=== PATIENT | male | born 1945 | race Caucasian/White ===

== ENCOUNTER 2018-09-08 08:17 | Inpatient (IN) ==
[2018-09-08] MEDS ORDERED: IOPAMIDOL 100 ML BOTTLE IV ONE (08:18)
[2018-09-08] MEDS ORDERED: 0.9 % SODIUM CHLORIDE 1,000 ML IV ONE (08:28)
[2018-09-08] MEDS ORDERED: ACETAMINOPHEN 325 MG TABLET PO ONE (08:54)
[2018-09-08] MEDS ORDERED: ONDANSETRON 4 MG/2 ML VIAL IV ONE (08:56)
--- NOTE | 2018-09-08 08:58 | Emergency Department Note ---
General Adult HPI - General Chief complaint: Cold/Flu Symptoms Stated complaint: "Feverish and stuff" Time Seen by Provider: 09/08/18 08:53 Source: patient Mode of arrival: ambulatory Limitations: no limitations - History of Present Illness HPI Narrative: This patient has not felt well for the last several days and has had cough with some nausea vomiting and also has developed some dysuria and urgency. No diarrhea. No significant abdominal pain. - Related Data Home Medications Medication Instructions Recorded Confirmed ascorbic acid (vitamin C) 500 mg 500 mg PO QDAY 10/15/17 08/19/18 tablet calcium cit 250 mg-mag 40 mg-D3 1 tab PO QDAY 10/15/17 08/19/18 125 unit-zinc 3.75 mg-copyright expert-sarah tablet cholecalciferol (vitamin D3) 5,000 5,000 unit PO QDAY 10/15/17 08/19/18 unit capsule coenzyme Q10 (ubiquinol) 100 mg 100 mg PO QDAY cap 10/15/17 08/19/18 capsule potassium chloride ER 10 mEq 10 meq PO QDAY 10/15/17 08/19/18 tablet,extended release(part/cryst) pyridoxine (vitamin B6) 50 mg 50 mg PO QDAY 10/15/17 08/19/18 capsule vitamin E 200 unit capsule 400 unit PO QDAY 10/15/17 08/19/18 biotin 5 mg capsule 5 mg PO QDAY 11/06/17 08/19/18 carica papaya tablet 1 tab PO QDAY tab 11/06/17 08/19/18 magnesium oxide 400 mg capsule 400 mg PO QDAY cap 11/06/17 08/19/18 zinc 50 mg tablet 50 mg PO QDAY 11/06/17 08/19/18 furosemide 40 mg tablet 40 mg PO ONCE PRN tab 07/15/18 08/19/18 Previous Rx's Medication Instructions Recorded cyanocobalamin (vit B-12) 1,000 1,000 mcg PO QDAY #1 tab 11/06/17 mcg tablet Allergies Allergy/AdvReac Type Severity Reaction Status Date / Time pravastatin [PRAVASTATIN] AdvReac Intermediate LOOSE STOOL Verified 08/19/18 08:30 Review of Systems All systems ED: reviewed and negative except as stated. Past Medical History - Past Medical History PMFSH Narrative: Medical History (Last Reviewed 08/19/18 @ 08:31 by Helen Walker CMA) Acute exacerbation of chronic obstructive airways disease (Resolved) Osteopenia (Chronic) Shortness of Breath (Chronic) Xerosis of skin (Chronic 11/07/13) Tricuspid regurgitation (Chronic) Tachycardia (Chronic) Seborrheic keratosis (Chronic 11/07/13) Reactive airway disease (Chronic 12/22/11) Pulmonary hypertension, secondary (Chronic) Pneumonia (Resolved 12/22/11) Lung nodule (Chronic) Mitral valve regurgitation (Chronic) Essential hypertension (Chronic 12/22/11) Hyperlipidemia (Chronic 12/22/11) Hiatal hernia (Chronic 05/05/14) Heart disease (Chronic) GERD (gastroesophageal reflux disease) (Chronic 11/02/10) Food intolerance (Chronic 09/24/13) Esophageal stricture (Chronic 05/05/14) Eczema (Chronic 11/07/13) Dyspnea (Chronic 12/28/12) Diverticulosis of colon (Chronic) Diarrhea (Chronic 04/07/14) Cough (Chronic 10/04/11) COPD (chronic obstructive pulmonary disease) (Chronic) Cardiomyopathy, secondary (Chronic) Cardiomegaly (Chronic 07/20/12) Bronchitis, chronic with acute exacerbation (Chronic) Breast tenderness (Resolved 09/24/13) Basal cell carcinoma (Resolved) Arrhythmia (Chronic 01/22/14) Anemia (Chronic 11/02/10) Erectile dysfunction (Chronic) Congestive heart failure (Chronic) Peptic stricture of esophagus (Chronic) Reflux esophagitis (Chronic) Garber's esophagus (Chronic) Atrial fibrillation (Inactive) Hyperplastic rectal polyp (Inactive 01/06/10) 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) Past Surgical History (Last Reviewed 08/19/18 @ 08:31 by Helen Walker CMA) History of right inguinal hernia repair (Acute) History of colonoscopy (Chronic 05/06/14) History of esophagogastroduodenoscopy (Chronic 05/05/14) History of mitral valve repair (Inactive 05/15/13) History of tricuspid valve repair (Inactive 05/13/13) History of valvuloplasty (Inactive) Family History (Last Reviewed 08/19/18 @ 08:31 by Helen Walker CMA) Mother Asthma Father Cardiac disease Sister Cardiac disease Mitral valve disease Medical history: Reports: CHF, COPD Surgical history ED: Reports: non-contributory - Social History smoking status: Never smoker Physical Exam Limitations: no limitations General appearance: alert Head: atraumatic Eye: Present: normal appearance ENT: normal exam Neck: Present: normal inspection Chest: Present: normal inspection Respiratory: Present: rales/crackles Cardiovascular: Present: regular rate, normal rhythm, normal heart sounds Abdominal: Present: soft. Absent: distention, tenderness Neurological: Present: alert Psychiatric: Present: normal affect Skin: Present: warm, dry Course Vital Signs Temperature 100.6 F H 09/08/18 08:18 Pulse Rate 96 H 09/08/18 08:18 Respiratory Rate 18 09/08/18 08:18 Pulse Oximetry (%) 95 09/08/18 08:18 Temperature 100.8 F H 09/08/18 10:15 Pulse Rate 104 H 09/08/18 10:07 Respiratory Rate 26 H 09/08/18 10:07 Blood Pressure 141/57 09/08/18 10:01 Pulse Oximetry (%) 94 09/08/18 10:07 Medical Decision Making - MDM Narrative Medical decision making narrative: This patient appears to have urosepsis and had one episode of emesis that had quite a bit of blood in it. We started him on Protonix and he will be admitted to the hospital by Dr. Kinney. We did blood cultures and gave him Levaquin. His chest x-ray looks normal except for some interstitial edema. He will get a CT scan of chest abdomen and pelvis. - Lab Data Lab results reviewed: Yes I reviewed the patient's lab results. Result diagrams: 09/08/18 08:55 09/08/18 08:55 Lab Results 09/08/18 09/08/18 09/08/18 Range/Units 08:50 08:50 08:55 WBC 17.6 H (4.5-11.0) K/mcL RBC 5.35 (4.50-5.90) M/mcL Hgb 15.2 (13.5-16.5) g/dL Hct 47.9 (41.0-55.0) % MCV 89.5 (80.0-100.0) fL MCH 28.5 (26.0-34.0) pg MCHC 31.8 (31.0-36.0) g/dL RDW 12.8 (11.5-14.5) % Plt Count 273 (140-440) K/mcL MPV 9.0 (7.4-10.4) fL Gran % 92.8 H (38.0-78.0) % Lymph % (Auto) 1.6 L (15.5-49.0) % Steele % (Auto) 5.6 (1.0-12.0) % Eos % (Auto) 0 (0.0-7.0) % Baso % (Auto) 0 (0.0-2.0) % Gran # 16.3 H (1.8-8.0) K/mcL Lymph # (Auto) 0.3 L (1.5-4.8) K/mcL Steele # (Auto) 1.0 H (0.1-0.9) K/mcL Eos # (Auto) 0 (0.0-0.7) K/mcL Baso # (Auto) 0 (0.0-0.3) K/mcL PT 15.3 H (11.9-14.5) sec INR 1.2 H (0.9-1.1) APTT 40 H (20-37) sec VBG Lactic Acid 1.3 (0.5-2.0) mmol/L Sodium (133-145) mmol/L Potassium (3.3-5.1) mmol/L Chloride (96-108) mmol/L Carbon Dioxide (22-30) mmol/L Anion Gap (8-16) BUN (8-23) mg/dl Creatinine (0.7-1.2) mg/dl GFR Calculation Glucose (70-105) mg/dL Calcium (8.6-10.4) mg/dl Total Bilirubin (0.0-1.0) mg/dL AST (0-37) U/l ALT (0-40) U/l Alkaline Phosphatase (39-117) U/L Total Protein (5.9-8.4) gm/dL Albumin (3.2-5.2) gm/dL Globulin (2.2-3.7) gm/dL Albumin/Globulin Ratio (1.0-2.3) Urine Color Urine Appearance Urine pH (5.0-9.0) Ur Specific [place] (1.000-1.035) Urine Protein (NEG) mg/dL Urine Glucose (UA) (NEG) mg/dL Urine Ketones (NEG) mg/dL Urine Occult Blood (<0.03) mg/dL Urine Nitrate (NEG) Urine Bilirubin (NEG) mg/dL Urine Urobilinogen (NEG) mg/dL Ur Leukocyte Esterase (NEG) /uL Urine RBC (0-1) /hpf Urine WBC (0-4) /hpf Ur Squamous Epith Cells (0-4) /hpf Urine Bacteria (0) /hpf Urine Mucus (0) /hpf Ur Culture Indicated? 09/08/18 09/08/18 Range/Units 08:55 09:26 WBC (4.5-11.0) K/mcL RBC (4.50-5.90) M/mcL Hgb (13.5-16.5) g/dL Hct (41.0-55.0) % MCV (80.0-100.0) fL MCH (26.0-34.0) pg MCHC (31.0-36.0) g/dL RDW (11.5-14.5) % Plt Count (140-440) K/mcL MPV (7.4-10.4) fL Gran % (38.0-78.0) % Lymph % (Auto) (15.5-49.0) % Steele % (Auto) (1.0-12.0) % Eos % (Auto) (0.0-7.0) % Baso % (Auto) (0.0-2.0) % Gran # (1.8-8.0) K/mcL Lymph # (Auto) (1.5-4.8) K/mcL Steele # (Auto) (0.1-0.9) K/mcL Eos # (Auto) (0.0-0.7) K/mcL Baso # (Auto) (0.0-0.3) K/mcL PT (11.9-14.5) sec INR (0.9-1.1) APTT (20-37) sec VBG Lactic Acid (0.5-2.0) mmol/L Sodium 131 L (133-145) mmol/L Potassium 3.9 (3.3-5.1) mmol/L Chloride 92 L (96-108) mmol/L Carbon Dioxide 25 (22-30) mmol/L Anion Gap 14.0 (8-16) BUN 18 (8-23) mg/dl Creatinine 1.0 (0.7-1.2) mg/dl GFR Calculation 74 Glucose 115 H (70-105) mg/dL Calcium 9.1 (8.6-10.4) mg/dl Total Bilirubin 1.2 H (0.0-1.0) mg/dL AST 23 (0-37) U/l ALT 20 (0-40) U/l Alkaline Phosphatase 111 (39-117) U/L Total Protein 8.3 (5.9-8.4) gm/dL Albumin 3.9 (3.2-5.2) gm/dL Globulin 4.4 H (2.2-3.7) gm/dL Albumin/Globulin Ratio 0.9 L (1.0-2.3) Urine Color Yellow Urine Appearance Hazy Urine pH 5.0 (5.0-9.0) Ur Specific [place] 1.017 (1.000-1.035) Urine Protein 100 A (NEG) mg/dL Urine Glucose (UA) Negative (NEG) mg/dL Urine Ketones 5/tr A (NEG) mg/dL Urine Occult Blood >=1.0 A (<0.03) mg/dL Urine Nitrate Pos A (NEG) Urine Bilirubin Neg (NEG) mg/dL Urine Urobilinogen Neg (NEG) mg/dL Ur Leukocyte Esterase 25 A (NEG) /uL Urine RBC > 182 H (0-1) /hpf Urine WBC 61 H (0-4) /hpf Ur Squamous Epith Cells < 1 (0-4) /hpf Urine Bacteria 0 (0) /hpf Urine Mucus Many A (0) /hpf Ur Culture Indicated? Yes - Radiology Data Radiology results reviewed: Yes I reviewed the patient's radiology results. Disposition Pt seen by RESEARCH AND EVALUATION ANALYST/PA only: No Clinical Impression: UTI (urinary tract infection), Upper GI bleed Disposition: Xfer As Inpt ([facility]) Condition: Fair Referrals: Ck Edwards MD [Primary Care Provider] - Time of Disposition: 10:26
[2018-09-08] MEDS ORDERED: PANTOPRAZOLE 40 MG VIAL IV ONE (09:08)
[2018-09-08] MEDS ORDERED: ACETAMINOPHEN 1,000 MG/100 ML BOTTLE IV ONE (09:10)
[2018-09-08] MEDS ORDERED: PANTOPRAZOLE 80 MG in 0.9 % SODIUM CHLORIDE 100 ML IV SCH (09:15)
[2018-09-08] MEDS ORDERED: LEVOFLOXACIN 750 MG/150 ML BAG IV ONE (09:19)
[2018-09-08 09:50] LABS: Basophils # (Auto) 0 K/mcL (0.0-0.3); Basophils % (Auto) 0 % (0.0-2.0); Eosinophils # (Auto) 0 K/mcL (0.0-0.7); Eosinophils % (Auto) 0 % (0.0-7.0); Granulocytes % (Auto) 92.8 % (38.0-78.0); Lymphocytes # (Auto) 0.3 K/mcL (1.5-4.8); Lymphocytes % (Auto) 1.6 % (15.5-49.0); Mean Cell Volume 89.5 fL (80.0-100.0); Mean Corpuscular HGB Conc 31.8 g/dL (31.0-36.0); Monocytes % (Auto) 5.6 % (1.0-12.0); Platelet Count 273 K/mcL (140-440); RBC 5.35 M/mcL (4.50-5.90); Red Cell Distribution Width 12.8 % (11.5-14.5)
--- NOTE | 2018-09-08 09:58 | XRay Report ---
CLINICAL INFORMATION: Fever. Weakness. TECHNIQUE: AP portable semiupright chest x-ray COMPARISON: Previous chest x-rays dated 07/26/2018, 05/09/2017 FINDINGS: Previous median sternotomy. There is a prosthetic cardiac valve, probably mitral. Heart size is slightly increased since previous examination. Pulmonary vascularity is prominent and there is peribronchial thickening. Appearance is consistent with mild interstitial pulmonary edema. No focal pulmonary parenchymal infiltrates. No evidence for pneumonia. There is no pleural fluid. Incidental note is made of a small hiatal hernia IMPRESSION: 1. Mild cardiomegaly and pulmonary congestion 2. Probable mild interstitial edema. 3. No acute or focal infiltrate. No evidence for pneumonia Interpreted and Authenticated by: Phillip Raymond 09/08/18
[2018-09-08 10:16] LABS: ALT/SGPT 20 U/l (0-40); Albumin 3.9 gm/dL (3.2-5.2); Albumin/Globulin Ratio 0.9 (1.0-2.3); Alkaline Phosphatase 111 U/L (39-117); Blood Urea Nitrogen 18 mg/dl (8-23)
[2018-09-08 10:17] LABS: Appearance,Urine HAZY; Bacteria,Urine 0 /hpf (0); Bilirubin,Urine NEG (NEG); Color,Urine YELLOW; Glucose,Urine (UA) NEGATIVE (NEG); Leukocyte Esterase,Urine 25 /uL (NEG); Mucus,Urine MANY /hpf (0); Protein,Urine 100 mg/dL (NEG); Specific Gravity,Urine 1.017 (1.000-1.035); Urine Blood >=1.0 mg/dL (<0.03); Urine RBC > 182 /hpf (0-1); Urine Squamous Epithelial Cell < 1 /hpf (0-4); Urine WBC 61 /hpf (0-4); Urobilinogen,Urine NEG (NEG)
--- NOTE | 2018-09-08 11:05 | Cat Scan Report ---
CLINICAL INFORMATION: Fever TECHNIQUE: Axial images through the chest, abdomen, pelvis. 80 mL contrast material injected. Oral contrast material was not administered COMPARISON: Chest x-ray dated 09/08/2018 and 07/26/2018 FINDINGS: Chest: Mild paraseptal emphysema. No focal pulmonary parenchymal infiltrate or mass. No pleural fluid. There is no pathologic hilar or mediastinal lymphadenopathy. There is no axillary or supraclavicular adenopathy. There is cardiomegaly. There is a prosthetic mitral valve with bilateral atrial enlargement, left worse than right. There is no pleural fluid. Main pulmonary artery is enlarged. Main pulmonary artery measures 3.8 cm in cross-sectional diameter. Findings are consistent with pulmonary arterial hypertension There is a small hiatal hernia. Previous median sternotomy. Thoracic spine is negative. No rib fractures or lytic lesions Abdomen, pelvis: Liver is negative. No focal intrahepatic abnormality. Liver contour is smooth. There is no ascites. There is a noncalcified gallstone which measures 2.7 cm in diameter. No pericholecystic fluid. No bile duct dilatation. Negative spleen. No splenomegaly. Normal enhancement of the splenic and portal veins. Pancreas is negative. No pancreatic mass. No peripancreatic abnormality. No evidence for pancreatitis Adrenal glands are negative. Kidneys are negative. No solid or cystic mass. There is no hydronephrosis. There are no calculi. There are sigmoid colon diverticuli. There is mild diverticulitis in the left side of the pelvis, no significant extraluminal gas. No diverticular abscess. No free pelvic fluid. Colon is otherwise negative. No colonic mass. No evidence for appendicitis. Small bowel is negative. No mechanical small bowel obstruction. There is no abdominal aortic aneurysm. There is no retroperitoneal, para-aortic adenopathy. No significant mesenteric adenopathy. There is a small umbilical hernia containing only mesenteric fat. This measures 1.8 cm in cross-sectional diameter. No lumbar compression fractures. There is multilevel degenerative disc disease. Sacrum and pelvis are negative. IMPRESSION: 1. Mild simple diverticulitis in the left side of the pelvis. No diverticular abscess 2. Cholelithiasis 3. Prosthetic mitral valve. There is biatrial enlargement. Main pulmonary artery is dilated suggesting pulmonary arterial hypertension 4. Small umbilical hernia containing only mesenteric fat 5. Small hiatal hernia 6. Multilevel degenerative disc disease in the lumbar spine Interpreted and Authenticated by: Phillip Raymond 09/08/18
--- NOTE | 2018-09-08 12:04 | Internal Med History&Physical ---
Medical - H&P: HPI Patient information: Note initiated : 09/08/18 at 11:49 am Service Date, if different from initiated Date: [] Patient: Dylan Diaz a 73 y/o M admitted on for "Feverish and stuff". Chief Complaint: [] History of present illness: Mr. Diaz is a 73 year old M with history of atrial fibrillation, not on anticoagulation, presents to the hospital today for evaluation of not feeling well for the last few days. The patient notes he felt sick from , he initially felt he had food poisoning as he had eaten some old vegetables stew from the refrigerator. The patient then had some nausea and vomiting, has been vomiting once a day since that time. No blood in the vomitus, he denies any h ematemesis. The patient had increased frequency of urination urgency and only. A little amounts. He denies any diarrhea any blood in stools or any significant abdominal pain. He denies any chest pain shortness of breath dizziness, denies any changes in vision difficulty in swallowing no new skin rashes or joint pains. The patient has been having fever and chills going on for the last 3 days. The patient therefore presented to the hospital for further evaluation in the emergency room patient has been febrile otherwise hemodynamically stable, he did have an episode of vomiting this time around there was some blood fresh in his vomitus. Patient lab work shows leukocytosis UA suggestive for UTI normal lactic acid level unremarkable chemistry patient is being admitted to the hospital for further management. IV PPI was started in the ER for GI bleed. CT abdomen pelvis was done which shows patient has simple diverticulitis in the sigmoid region The patient case was reviewed with Dr. Rosa GI physician, patient has had an endoscopy done last year which showed severe ulcerative esophagitis no varices, patient is not on a PPI medication as he does not want to take that medication or any other acid suppressing medications. Patient also does not take anticoagulation medications for his A. fib, the patient does not have melena and BUN is normal therefore we are holding off on upper endoscopy at this time. All systems: reviewed and no additional remarkable complaints except as stated (as per HPI rest neg) Medical - H&P: PMH Medical history: Medical History (Last Reviewed 08/19/18 @ 08:31 by Helen Walker CMA) Acute exacerbation of chronic obstructive airways disease (Resolved) Osteopenia (Chronic) Shortness of Breath (Chronic) Xerosis of skin (Chronic 11/07/13) Tricuspid regurgitation (Chronic) Tachycardia (Chronic) Seborrheic keratosis (Chronic 11/07/13) Reactive airway disease (Chronic 12/22/11) Pulmonary hypertension, secondary (Chronic) Pneumonia (Resolved 12/22/11) Lung nodule (Chronic) Mitral valve regurgitation (Chronic) Essential hypertension (Chronic 12/22/11) Hyperlipidemia (Chronic 12/22/11) Hiatal hernia (Chronic 05/05/14) Heart disease (Chronic) GERD (gastroesophageal reflux disease) (Chronic 11/02/10) Food intolerance (Chronic 09/24/13) Esophageal stricture (Chronic 05/05/14) Eczema (Chronic 11/07/13) Dyspnea (Chronic 12/28/12) Diverticulosis of colon (Chronic) Diarrhea (Chronic 04/07/14) Cough (Chronic 10/04/11) COPD (chronic obstructive pulmonary disease) (Chronic) Cardiomyopathy, secondary (Chronic) Cardiomegaly (Chronic 07/20/12) Bronchitis, chronic with acute exacerbation (Chronic) Breast tenderness (Resolved 09/24/13) Basal cell carcinoma (Resolved) Arrhythmia (Chronic 01/22/14) Anemia (Chronic 11/02/10) Erectile dysfunction (Chronic) Congestive heart failure (Chronic) Peptic stricture of esophagus (Chronic) Reflux esophagitis (Chronic) Garber's esophagus (Chronic) Atrial fibrillation (Inactive) Hyperplastic rectal polyp (Inactive 01/06/10) 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) Surgical history: Past Surgical History (Last Reviewed 08/19/18 @ 08:31 by Helen Walker CMA) History of right inguinal hernia repair (Acute) History of colonoscopy (Chronic 05/06/14) History of esophagogastroduodenoscopy (Chronic 05/05/14) History of mitral valve repair (Inactive 05/15/13) History of tricuspid valve repair (Inactive 05/13/13) History of valvuloplasty (Inactive) Family history: reviewed and not pertinent Medical - H&P: Meds Home Medications Medication Instructions Recorded Confirmed Type ascorbic acid (vitamin C) 500 mg 500 mg PO QDAY 10/15/17 09/08/18 History tablet calcium cit 250 mg-mag 40 mg-D3 1 tab PO QDAY 10/15/17 09/08/18 History 125 unit-zinc 3.75 mg-stroboscope operator-sarah tablet cholecalciferol (vitamin D3) 5,000 5,000 unit PO QDAY 10/15/17 09/08/18 History unit capsule coenzyme Q10 (ubiquinol) 100 mg 100 mg PO QDAY cap 10/15/17 09/08/18 History capsule potassium chloride ER 10 mEq 10 meq PO QDAY 10/15/17 09/08/18 History tablet,extended release(part/cryst) pyridoxine (vitamin B6) 50 mg 50 mg PO QDAY 10/15/17 09/08/18 History capsule vitamin E 200 unit capsule 400 unit PO QDAY 10/15/17 09/08/18 History biotin 5 mg capsule 5 mg PO QDAY 11/06/17 09/08/18 History carica papaya tablet 1 tab PO QDAY tab 11/06/17 08/19/18 History cyanocobalamin (vit B-12) 1,000 1,000 mcg PO QDAY #1 tab 11/06/17 09/08/18 Rx mcg tablet magnesium oxide 400 mg capsule 400 mg PO QDAY cap 11/06/17 09/08/18 History zinc 50 mg tablet 50 mg PO QDAY 11/06/17 09/08/18 History furosemide 40 mg tablet 40 mg PO ONCE PRN tab 07/15/18 09/08/18 History Carvedilol [Coreg] 6.25 mg PO BIDCC 09/08/18 09/08/18 History Losartan [Cozaar] 25 mg PO ONCE 09/08/18 09/08/18 History Allergies Allergy/AdvReac Type Severity Reaction Status Date / Time pravastatin [PRAVASTATIN] AdvReac Intermediate LOOSE STOOL Verified 08/19/18 08:30 Medical - H&P: Exam - Constitutional Vitals: Temp Pulse Resp BP Pulse Ox 100.8 F H 85 18 95/64 96 09/08/18 10:15 09/08/18 11:01 09/08/18 11:01 09/08/18 11:01 09/08/18 11:01 Exam: GENERAL: The patient is a well-developed, well-nourished in no apparent distress. Is alert and oriented x3. VITAL SIGNS: Reviewed and as noted elsewhere. HEENT: Head is normocephalic and atraumatic. Extraocular muscles are intact. Pupils are equal, round, and reactive to light. Nares appeared normal. Mouth appears any without lesions. Mucous membranes are moist. NECK: Normal to inspection, Supple, No lymphadenopathy or thyromegaly. LUNGS: Air entry equal on both sides, no wheezing, crackles or rhonchi noted. No accessory muscles of respiration HEART: Regular rate and rhythm irregular , S1 and S2 heard, no Gallop, S3 or Rub Noted, No Gross murmur heard. ABDOMEN: Soft, nontender, and nondistended. Positive bowel sounds. No hepatosplenomegaly was noted. EXTREMITIES: No cyanosis, clubbing, rash, lesions or edema. NEUROLOGIC: Cranial nerves II through XII are grossly intact. Motor and Sensory System Grossly Intact PSYCHIATRIC: Normal affect, Normal Mood. Appropriate Behavior. SKIN: No ulceration or wounds noted, No jaundice, No rash noted. Medical - H&P: Reslt - Labs CBC & Chem 7: 09/08/18 08:55 09/08/18 08:55 Labs: Short CBC 09/08/18 Range/Units 08:55 WBC 17.6 H (4.5-11.0) K/mcL Hgb 15.2 (13.5-16.5) g/dL Hct 47.9 (41.0-55.0) % Plt Count 273 (140-440) K/mcL BMP 09/08/18 08:55 Sodium 131 L Potassium 3.9 Chloride 92 L Carbon Dioxide 25 BUN 18 Creatinine 1.0 Glucose 115 H Calcium 9.1 Liver Function 09/08/18 Range/Units 08:55 Total Bilirubin 1.2 H (0.0-1.0) mg/dL AST 23 (0-37) U/l ALT 20 (0-40) U/l Alkaline Phosphatase 111 (39-117) U/L Albumin 3.9 (3.2-5.2) gm/dL Urine 09/08/18 Range/Units 09:26 Urine Color Yellow Urine Appearance Hazy Urine pH 5.0 (5.0-9.0) Ur Specific [place] 1.017 (1.000-1.035) Urine Protein 100 A (NEG) mg/dL Urine Glucose (UA) Negative (NEG) mg/dL Medical - H&P: A/P - Narrative A/P Narrative: A/P Acute Simple Diverticulitis -IV rocephin and flagyl for now, -low residue diet Urinary tract infection -IV rocehephin -await urine culture -sigmoid diverticulitis can cause UTI like symptoms. Atrial fibrillation -not on anticoagulation, was recommended by his speech lang path, undertands risks -continue coreg HTN -on coreg and losartan continue GI bleed -Likely ramya wiess tear vs esophagitis. -IV PPI for now -trend hb -will get EGD if clinical condition changes -case reviewed with Dr Reyes COPD -albulterol prn for now, -no wheezing on exam DVT scd Full code Low residue diet. Social History - Social History household members: spouse housing: house lives independently: Yes marital status: education level: college occupational status: retired occupation: [employer] - Tobacco smoking status: Never smoker - Alcohol alcohol intake frequency: does not drink - Substance use substance use type: does not use
[2018-09-08] MEDS ORDERED: oxyCODONE HCL 5 MG TABLET PO PRN (13:31)
[2018-09-08] MEDS ORDERED: ACETAMINOPHEN 325 MG TABLET PO PRN (13:31)
[2018-09-08] MEDS ORDERED: cefTRIAXone 1 GM in DEXTROSE 5% IN WATER 50 ML IV SCH (13:31)
[2018-09-08] MEDS ORDERED: ONDANSETRON 4 MG/2 ML VIAL IV PRN (13:31)
[2018-09-08] MEDS ORDERED: ALBUTEROL SULFATE 2.5 MG/3 ML NEBULIZER NEB PRN (13:31)
[2018-09-08] MEDS: 0.9 % SODIUM CHLORIDE 10 ML SYRINGE IV SCH ×3 (14:51→21:55)
[2018-09-08] MEDS: cefTRIAXone 1 GM VIAL IV SCH (14:59)
[2018-09-08] MEDS: metroNIDAZOLE 500 MG/100 ML BAG IV SCH ×2 (16:05→21:55)
[2018-09-08] MEDS: CARVEDILOL 6.25 MG TABLET PO SCH (17:40)
[2018-09-08] MEDS: PANTOPRAZOLE 40 MG VIAL IV SCH (17:40)
[2018-09-08 18:01] LABS: Basophils # (Auto) 0 K/mcL (0.0-0.3); Basophils % (Auto) 0 % (0.0-2.0); Eosinophils # (Auto) 0 K/mcL (0.0-0.7); Eosinophils % (Auto) 0 % (0.0-7.0); Granulocytes % (Auto) 92.7 % (38.0-78.0); Lymphocytes # (Auto) 0.3 K/mcL (1.5-4.8); Lymphocytes % (Auto) 2.4 % (15.5-49.0); Mean Cell Volume 87.4 fL (80.0-100.0); Mean Corpuscular HGB Conc 32.5 g/dL (31.0-36.0); Monocytes # (Auto) 0.6 K/mcL (0.1-0.9); Monocytes % (Auto) 4.9 % (1.0-12.0); Platelet Count 233 K/mcL (140-440); RBC 4.87 M/mcL (4.50-5.90); Red Cell Distribution Width 13.4 % (11.5-14.5)
[2018-09-09 05:12] LABS: Basophils # (Auto) 0 K/mcL (0.0-0.3); Basophils % (Auto) 0.1 % (0.0-2.0); Eosinophils # (Auto) 0 K/mcL (0.0-0.7); Eosinophils % (Auto) 0 % (0.0-7.0); Granulocytes % (Auto) 85.4 % (38.0-78.0); Lymphocytes # (Auto) 0.3 K/mcL (1.5-4.8); Lymphocytes % (Auto) 4.9 % (15.5-49.0); Mean Cell Volume 88.8 fL (80.0-100.0); Mean Corpuscular HGB Conc 32.3 g/dL (31.0-36.0); Monocytes # (Auto) 0.6 K/mcL (0.1-0.9); Monocytes % (Auto) 9.6 % (1.0-12.0); Platelet Count 202 K/mcL (140-440); RBC 4.48 M/mcL (4.50-5.90); Red Cell Distribution Width 13.5 % (11.5-14.5)
[2018-09-09] MEDS: metroNIDAZOLE 500 MG/100 ML BAG IV SCH ×3 (05:51→21:56)
[2018-09-09] MEDS: 0.9 % SODIUM CHLORIDE 10 ML SYRINGE IV SCH ×3 (05:59→21:57)
[2018-09-09 06:04] LABS: ALT/SGPT 15 U/l (0-40); Albumin 2.9 gm/dL (3.2-5.2); Albumin/Globulin Ratio 0.9 (1.0-2.3); Alkaline Phosphatase 80 U/L (39-117); Bilirubin,Direct < 0.2 mg/dL (0.0-0.3); Blood Urea Nitrogen 19 mg/dl (8-23); Gamma Glutamyl Transpeptidase 22 U/L (8-61); Uric Acid 4.6 mg/dL (2.5-8.0)
[2018-09-09] MEDS: PANTOPRAZOLE 40 MG VIAL IV SCH ×2 (07:28→17:12)
[2018-09-09] MEDS ORDERED: LOSARTAN 25 MG TABLET PO SCH (09:00)
[2018-09-09] MEDS: cefTRIAXone 1 GM VIAL IV SCH (09:26)
[2018-09-09] MEDS: CARVEDILOL 6.25 MG TABLET PO SCH ×2 (09:55→17:12)
[2018-09-09] MEDS: FUROSEMIDE 40 MG TABLET PO SCH (09:55)
[2018-09-09] MEDS: POTASSIUM CHLORIDE 10 MEQ TABLET PO SCH (09:55)
[2018-09-09] MEDS: MAGNESIUM OXIDE 400 MG TABLET PO SCH (09:55)
--- NOTE | 2018-09-09 11:05 | Internal Med Progress Note ---
Medical - PN: Subj Patient information: Note initiated : 09/09/18 at 11:01 am Service Date, if different from initiated Date: [] Patient: Dylan Diaz a 73 y/o M admitted on 09/08/18 for Cold/Flu Symptoms, UTI. Chief Complaint: [] Interval history: Mr. Diaz is a 73 year old M with history of atrial fibrillation, not on anticoagulation, presents to the hospital today for evaluation of not feeling well for the last few days. The patient notes he felt sick from , he initially felt he had food poisoning as he had eaten some old vegetables stew from the refrigerator. The patient then had some nausea and vomiting, has been vomiting once a day since that time. No blood in the vomitus, he denies any hematemesis. The patient had increased frequency of urination urgency and only. A little amounts. He denies any diarrhea any blood in stools or any significant abdominal pain. He denies any chest pain shortness of breath dizziness, denies any changes in vision difficulty in swallowing no new skin rashes or joint pains. The patient has been having fever and chills going on for the last 3 days. The patient therefore presented to the hospital for further evaluation in the emergency room patient has been febrile otherwise hemodynamically stable, he did have an episode of vomiting this time around there was some blood fresh in his vomitus. Patient lab work shows leukocytosis UA suggestive for UTI normal lactic acid level unremarkable chemistry patient is being admitted to the hospital for further management. IV PPI was started in the ER for GI bleed. CT abdomen pelvis was done which shows patient has simple diverticulitis in the sigmoid region The patient case was reviewed with Dr. Rosa GI physician, patient has had an endoscopy done last year which showed severe ulcerative esophagitis no varices, patient is not on a PPI medication as he does not want to take that medication or any other acid suppressing medications. Patient also does not take anticoagulation medications for his A. fib, the patient does not have melena and BUN is normal therefore we are holding off on upper endoscopy at this time. 09/09 Patient seen examined, no acute issues clinically much imporved good appetitite Blood culture gram negative bacillius, urine culture pending, sensitivity pendin g. Pertinent ROS: present headache, no dizziness Denies chest pain, palpitations Denies cough or shortness of breath Denies abdominal pain, nausea or vomiting. - Constitutional Vitals: Vital Signs Temp Pulse Resp BP Pulse Ox 97.8 F 89 18 127/68 94 09/09/18 08:00 09/09/18 08:00 09/09/18 08:00 09/09/18 08:00 09/09/18 08:00 Period Temp Pulse Resp BP Sys/Villalba Pulse Ox Last 24 Hr 97.0 F-101.6 F 38-91 12-23 113-130/58-82 94-97 Intake and Output 09/08/18 09/09/18 09/09/18 21:59 05:59 13:59 Intake Total 340 685 100 Output Total 725 375 Balance -385 310 100 Weight 171 lb 8 oz Intake & Output: Intake & Output 09/08/18 09/09/18 09/09/18 21:59 05:59 13:59 Intake Total 340 685 100 Output Total 725 375 Balance -385 310 100 Weight 171 lb 8 oz Intake: IV 100 100 100 Oral 240 585 Output: Void Amount 725 375 Other: Meal Dinner Percent of Meal Consumed 100% Feeding Ability Independent Urine Appearance Clear Clear Urine Color Pale Dark Lili Urine Odor Normal Exam: Constitutional; Afebrile, cooperative, alert, not in distress. Respiratory system: Air Entry equal on both sides, No crackles or wheezing, no r honchi. CVS- Rate rhythm regular, S1,S2 heard, no gallop, no rub. 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 Medical - PN: Obj Da - Labs CBC & Chem 7: 09/09/18 03:28 09/09/18 03:28 Labs: Abnormal Lab Results 09/09/18 09/09/18 09/08/18 03:28 03:28 17:08 WBC 11.5 H RBC 4.48 L Hgb 12.9 L Hct 39.8 L Gran % 85.4 H 92.7 H Lymph % (Auto) 4.9 L 2.4 L Gran # 10.7 H Lymph # (Auto) 0.3 L 0.3 L Emery # (Auto) PT INR APTT Sodium Chloride Glucose Calcium 8.2 L Total Bilirubin Albumin 2.9 L Globulin Albumin/Globulin Ratio 0.9 L Urine Protein Urine Ketones Urine Occult Blood Urine Nitrate Ur Leukocyte Esterase Urine RBC Urine WBC Urine Mucus 09/08/18 09/08/18 09/08/18 09:26 08:55 08:55 WBC 17.6 H RBC Hgb Hct Gran % 92.8 H Lymph % (Auto) 1.6 L Gran # 16.3 H Lymph # (Auto) 0.3 L Emery # (Auto) 1.0 H PT INR APTT Sodium 131 L Chloride 92 L Glucose 115 H Calcium Total Bilirubin 1.2 H Albumin Globulin 4.4 H Albumin/Globulin Ratio 0.9 L Urine Protein 100 A Urine Ketones 5/tr A Urine Occult Blood >=1.0 A Urine Nitrate Pos A Ur Leukocyte Esterase 25 A Urine RBC > 182 H Urine WBC 61 H Urine Mucus Many A 09/08/18 08:50 WBC RBC Hgb Hct Gran % Lymph % (Auto) Gran # Lymph # (Auto) Emery # (Auto) PT 15.3 H INR 1.2 H APTT 40 H Sodium Chloride Glucose Calcium Total Bilirubin Albumin Globulin Albumin/Globulin Ratio Urine Protein Urine Ketones Urine Occult Blood Urine Nitrate Ur Leukocyte Esterase Urine RBC Urine WBC Urine Mucus Meds: Medications Acetaminophen (Tylenol) 650 mg PO Q6HP PRN PRN Reason: PAIN/FEVER > 101 Last Admin: 09/08/18 23:28 Dose: 650 mg Documented by: Albuterol Sulfate (Ventolin) 2.5 mg NEB Q2HP PRN PRN Reason: Shortness Of Breath [facility] Last Admin: 09/09/18 09:55 Dose: 6.25 mg Documented by: Ceftriaxone Sodium (Rocephin) 1 gm IV Q24H [facility] Last Admin: 09/09/18 09:26 Dose: 1 gm Documented by: Furosemide (Lasix) 40 mg PO DAILY [facility] Last Admin: 09/09/18 09:55 Dose: 40 mg Documented by: Metronidazole (Flagyl) 500 mg in 100 mls @ 100 mls/hr IV Q8H [facility]; Protocol Last Infusion: 09/09/18 07:00 Dose: Infused Documented by: Magnesium Oxide (Magnesium Oxide) 400 mg PO QDAY [facility] Last Admin: 09/09/18 09:55 Dose: 400 mg Documented by: Ondansetron HCl (Zofran) 4 mg IV Q6HP PRN PRN Reason: Nausea And Vomiting Oxycodone HCl (Roxicodone) 5 mg PO Q4HP PRN PRN Reason: Pain not responding to apap Pantoprazole Sodium (Protonix) 40 mg IV BIDAC [facility] Last Admin: 09/09/18 07:28 Dose: 40 mg Documented by: Potassium Chloride (Kdur) 10 meq PO QAMCC [facility] Last Admin: 09/09/18 09:55 Dose: 10 meq Documented by: Sodium Chloride (Saline Flush) 10 ml IV Q8 [facility] Last Admin: 09/09/18 05:59 Dose: 10 ml Documented by: Medical - PN: A/P - Time Spent With Patient Total time spent is greater than 50% in coordination of care (as documented) at patient's floor/unit and/or counseling patient: - Narrative A/P Narrative: A/P Acute Simple Diverticulitis -IV rocephin and flagyl for now, -low residue diet Urinary tract infection -IV rocehephin -await urine culture -sigmoid diverticulitis can cause UTI like symptoms. Gram negative bactermia, due to above. - Ecoli, on rocephin, await sensitivity. 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 -pt not taking losartan it seems, will hold off. GI bleed -Likely ramya wiess tear vs esophagitis. -IV PPI for now -hb stable. -will get EGD if clinical condition changes -case reviewed with Dr Reyes COPD -albulterol prn for now, -no wheezing on exam DVT scd Full code Low residue diet. Medical - PN: Qual - Stroke Symptom Onset Unknown: No - VTE Deep Vein Thrombosis/Pulmonary Embolism Present on Admission: No
[2018-09-10 05:54] LABS: ALT/SGPT 15 U/l (0-40); Albumin 2.8 gm/dL (3.2-5.2); Albumin/Globulin Ratio 0.8 (1.0-2.3); Alkaline Phosphatase 67 U/L (39-117); Bilirubin,Direct < 0.2 mg/dL (0.0-0.3); Blood Urea Nitrogen 23 mg/dl (8-23); Gamma Glutamyl Transpeptidase 24 U/L (8-61); Uric Acid 5.5 mg/dL (2.5-8.0)
[2018-09-10] MEDS: metroNIDAZOLE 500 MG/100 ML BAG IV SCH (05:55)
[2018-09-10] MEDS: 0.9 % SODIUM CHLORIDE 10 ML SYRINGE IV SCH (05:55)
[2018-09-10 05:58] LABS: Basophils # (Auto) 0 K/mcL (0.0-0.3); Basophils % (Auto) 0.5 % (0.0-2.0); Eosinophils # (Auto) 0.2 K/mcL (0.0-0.7); Eosinophils % (Auto) 2.8 % (0.0-7.0); Granulocytes % (Auto) 67.2 % (38.0-78.0); Lymphocytes # (Auto) 0.7 K/mcL (1.5-4.8); Lymphocytes % (Auto) 10.7 % (15.5-49.0); Mean Cell Volume 87.6 fL (80.0-100.0); Mean Corpuscular HGB Conc 33.1 g/dL (31.0-36.0); Monocytes # (Auto) 1.2 K/mcL (0.1-0.9); Monocytes % (Auto) 18.8 % (1.0-12.0); Platelet Count 219 K/mcL (140-440); Red Cell Distribution Width 13.6 % (11.5-14.5)
[2018-09-10] MEDS: CARVEDILOL 6.25 MG TABLET PO SCH (07:39)
[2018-09-10] MEDS: FUROSEMIDE 40 MG TABLET PO SCH (07:43)
[2018-09-10] MEDS: MAGNESIUM OXIDE 400 MG TABLET PO SCH (07:43)
[2018-09-10] MEDS: PANTOPRAZOLE 40 MG VIAL IV SCH (07:44)
[2018-09-10] MEDS: POTASSIUM CHLORIDE 10 MEQ TABLET PO SCH (07:49)
[2018-09-10] MEDS: cefTRIAXone 1 GM VIAL IV SCH (07:50)
--- NOTE | 2018-09-10 09:21 | Discharge Summary ---
Medical - DS: Prov Patient information: Note initiated : 09/10/18 at 9:18 am Service Date, if different from initiated Date: [] Patient: Dylan Diaz 73 y/o M admitted on 09/08/18 for Cold/Flu Symptoms, UTI. Chief Complaint: [] Date of admission: 09/08/18 13:19 Discharge date: 09/10/18 Primary care physician: Ck Edwards Consults: 09/08/18 Consult to Physician [CONS] Stat Comment: Consulting Provider: Michael Kinney Reason For Exam: Physician to Consult Discharging clinician: Michael Kinney Medical - DS: Meds - Discharge Medications Prescriptions: Levofloxacin 750 mg PO DAILY #5 tab metroNIDAZOLE [Flagyl] 500 mg PO TID #15 tab Active and Home Medications: Home Medications ascorbic acid (vitamin C) 500 mg tablet 500 mg PO QDAY 10/15/17 [History Confirmed 09/08/18 Last Taken 07/29/18] calcium cit 250 mg-mag 40 mg-D3 125 unit-zinc 3.75 mg-copra sampler-sarah tablet 1 tab PO QDAY 10/15/17 [History Confirmed 09/08/18 Last Taken 07/29/18] cholecalciferol (vitamin D3) 5,000 unit capsule 5,000 unit PO QDAY 10/15/17 [History Confirmed 09/08/18 Last Taken 07/30/18] coenzyme Q10 (ubiquinol) 100 mg capsule 100 mg PO QDAY cap 10/15/17 [History Confirmed 09/08/18 Last Taken 07/30/18] potassium chloride ER 10 mEq tablet,extended release(part/cryst) 10 meq PO QDAY 10/15/17 [History Confirmed 09/08/18 Last Taken 07/29/18] pyridoxine (vitamin B6) 50 mg capsule 50 mg PO QDAY 10/15/17 [History Confirmed 09/08/18 Last Taken 07/29/18] vitamin E 200 unit capsule 400 unit PO QDAY 10/15/17 [History Confirmed 09/08/18 Last Taken 07/29/18] biotin 5 mg capsule 5 mg PO QDAY 11/06/17 [History Confirmed 09/08/18 Last Taken 07/30/18] carica papaya tablet 1 tab PO QDAY tab 11/06/17 [History Confirmed 09/08/18 Last Taken 07/29/18] cyanocobalamin (vit B-12) 1,000 mcg tablet 1,000 mcg PO QDAY #1 tab 11/06/17 [Rx Confirmed 09/08/18 Last Taken 07/30/18] magnesium oxide 400 mg capsule 400 mg PO QDAY cap 11/06/17 [History Confirmed 09/08/18 Last Taken 07/29/18] zinc 50 mg tablet 50 mg PO QDAY 11/06/17 [History Confirmed 09/08/18 Last Taken 07/29/18] furosemide 40 mg tablet 40 mg PO ONCE PRN tab 07/15/18 [History Confirmed 09/08/18 Last Taken 07/29/18] Carvedilol [Coreg] 6.25 mg PO BIDCC 09/08/18 [History Confirmed 09/08/18 Last Taken Unknown] Losartan [Cozaar] 25 mg PO ONCE 09/08/18 [History Confirmed 09/08/18 Last Taken Unknown] Medical - DS: Hosp Hospital course: Mr. Diaz is a 73 year old M with history of atrial fibrillation, not on anticoagulation, presents to the hospital today for evaluation of not feeling well for the last few days. The patient notes he felt sick from , he initially felt he had food poisoning as he had eaten some old vegetables stew from the refrigerator. The patient then had some nausea and vomiting, has been vomiting once a day since that time. No blood in the vomitus, he denies any hematemesis. The patient had increased frequency of urination urgency and only. A little amounts. He denies any diarrhea any blood in stools or any significant abdominal pain. He denies any chest pain shortness of breath dizziness, denies any changes in vision difficulty in swallowing no new skin rashes or joint pains. The patient has been having fever and chills going on for the last 3 days. The patient therefore presented to the hospital for further evaluation in the emergency room patient has been febrile otherwise hemodynamically stable, he did have an episode of vomiting this time around there was some blood fresh in his vomitus. Patient lab work shows leukocytosis UA suggestive for UTI normal lactic acid level unremarkable chemistry patient is being admitted to the hospital for further management. IV PPI was started in the ER for GI bleed. CT abdomen pelvis was done which shows patient has simple diverticulitis in the sigmoid region The patient case was reviewed with Dr. Rosa GI physician, patient has had an endoscopy done last year which showed severe ulcerative esophagitis no varices, patient is not on a PPI medication as he does not want to take that medication or any other acid suppressing medications. Patient also does not take anticoagulation medications for his A. fib, the patient does not have melena and BUN is normal therefore we are holding off on upper endoscopy at this time. 09/09 Patient seen examined, no acute issues clinically much imporved good appetitite Blood culture gram negative bacillius, urine culture pending, sensitivity pending. 09/10 Patient seen examined, walking around in his room, no complaints or concerns. labs stable urine culture is ecoli olson sensitive. Blood culture is ecoli await reports. but patient has responded well clinically expect to be the same pathogen with sensitivity. will discharge with oral levofloxacin 750mg and flagyl for another 5 days. Patient to follow up with PCP, no changes made to [facility] home medication list. Discharge diagnosis: diveriticulitis, UTI, Gram neg bactremia. - Time Spent with Patient Total time spent providing and/or coordinating discharge services: Greater than 30 minutes Medical - DS: Exam - Constitutional Vitals: Vital Signs Temp Pulse Resp BP BP Pulse Ox 09/10/18 08:00 98.2 F 78 18 146/76 95 09/10/18 03:46 98.6 F 69 22 132/72 92 09/09/18 23:00 99.4 F H 68 22 118/72 93 09/09/18 19:35 98.7 F 69 24 H 113/68 94 09/09/18 16:00 98.2 F 94 H 16 126/78 95 09/09/18 11:25 98.1 F 101 H 18 114/65 93 Intake and Output 09/09/18 09/10/18 09/10/18 21:59 05:59 13:59 Intake Total 100 400 100 Output Total 2965 275 75 Balance -2865 125 25 Intake: IV 100 100 100 Oral 300 Output: Void Amount 2965 275 75 Other: Meal Dinner Percent of Meal Consumed 100% Feeding Ability Independent Urine Appearance Clear Clear Urine Color Straw Straw Dark Lili Urine Odor Normal Normal Weight 170 lb Additional comments: Constitutional; Afebrile, cooperative, alert, not in distress. Respiratory system: Air Entry equal on both sides, No crackles or wheezing, no rhonchi. CVS- Rate rhythm regular, S1,S2 heard, no gallop, no rub. Abdomen- Soft nontender abdomen, no organomegaly, no tenderness, no guarding or rigidity, OFFICE SERVICE COORDINATOR- AOOx3, moving all extremities, no gross focal deficit noted. Medical - DS: Data Labs on day of discharge: Labs from last 24 hours 09/10/18 09/10/18 03:40 03:40 WBC 6.5 RBC 4.60 Hgb 13.4 L Hct 40.3 L MCV 87.6 MCH 29.0 MCHC 33.1 RDW 13.6 Plt Count 219 MPV 8.9 Gran % 67.2 Lymph % (Auto) 10.7 L [place] % (Auto) 18.8 H Eos % (Auto) 2.8 Baso % (Auto) 0.5 Gran # 4.4 Lymph # (Auto) 0.7 L [place] # (Auto) 1.2 H Eos # (Auto) 0.2 Baso # (Auto) 0 Sodium 138 Potassium 4.4 Chloride 100 Carbon Dioxide 29 Anion Gap 9.0 BUN 23 Creatinine 1.2 GFR Calculation 59 Glucose 93 Uric Acid 5.5 Calcium 8.3 L Phosphorus 4.0 Magnesium 2.1 Total Bilirubin 0.3 Direct Bilirubin < 0.2 GGT 24 AST 18 ALT 15 Alkaline Phosphatase 67 Lactate Dehydrogenase 152 Total Protein 6.1 Albumin 2.8 L Globulin 3.3 Albumin/Globulin Ratio 0.8 L Triglycerides 73 Preliminary micro results at discharge 09/08/18 09:28 Blood Culture - Preliminary Blood 09/08/18 09:35 Blood Culture - Preliminary Blood Gram negative bacillus Medical - DS: A/P - Patient/Caregiver Discharge Instructions Activity: as per physical therapy Diet: Low Fiber Additional Instructions: Please be on a low fiber diet for 7-10 days, once feeling better, can start a high fiber diet complete the course of antibiotics, 5 more days Take your medications as prescribed by your previous provider No changes made to your home medication regime. stay well hydrated Go to the ER if chest pain, fever, shortness of breath or any other acute concer n. - Follow up Plan Follow up with: Ck Edwards MD [Primary Care Provider] - 09/16/18 10:45 am (Please check in at 10:30) Disposition: Home, Self-Care Prognosis: Fair Rehab Potential: Fair I certify that the patient requires SNF services: No Overall status at discharge: patient is progressing back to baseline Medical - DS: Qual - VTE Deep Vein Thrombosis/Pulmonary Embolism Present on Admission: No
== END 2018-09-10 10:34 | disposition home or self-care (01) | DRG 392 ==
LOC: ED 08:17 → ICU 13:19
PROVIDERS: ADMIT Internal Medicine; ATTEND Internal Medicine

== ENCOUNTER 2022-07-14 04:57 | Inpatient (IN) ==
[2022-07-14] MEDS ORDERED: IOPAMIDOL 100 ML BOTTLE IV ONE (04:58)
[2022-07-14] MEDS ORDERED: PHENobarb/HYOSCY/ATROPINE/SCOP 1 DOSE BOTTLE PO ONE (05:02)
[2022-07-14] MEDS ORDERED: ONDANSETRON 4 MG/2 ML VIAL IV ONE ×2 (05:14)
[2022-07-14 05:15] LABS: POC Calcium, Ionized 1.11 (1.16-1.32); POC Potassium 3.2 (3.3-5.1)
--- NOTE | 2022-07-14 05:23 | Emergency Department Note ---
Abdominal Pain HPI General Chief Complaint: Abdominal Pain Stated Complaint: epigastric pain Time Seen by Provider: 07/14/22 05:02 Source: patient Mode of arrival: wheelchair Limitations: no limitations History of Present Illness HPI Narrative: Narrative: Patient presents to the ED with complaints of abdominal pain that started about 2 AM. Patient rates the pain 7/10. He states that the pain is in the middle of his chest. Maximum point he points to his epigastrium. Patient reported that sometimes the pain radiates into his chest. States the pain radiates all the way to his back. He reports that he is also had 3 episodes of vomiting looks dark brown. Patient states he has never had pain like this before. Does report a history of acid reflux. Patient denies fever, chills, abdominal trauma, hematemesis, melena, hematochezia, diarrhea, dysuria, hematuria, urinary frequency. He denies any [id number]-[id number] medication. Patient [place] any other alleviating or aggravating factors. Related Data Home Medications Medication Instructions Recorded Confirmed coQ10 (ubiquinol) 100 mg capsule 100 mg PO QDAY 10/15/17 01/26/22 pyridoxine (vitamin B6) 50 mg 50 mg PO QDAY 10/15/17 01/26/22 capsule zinc 50 mg tablet 50 mg PO QDAY 09/16/18 01/26/22 ascorbic acid (vitamin C) 500 mg 500 mg PO QDAY 10/17/18 01/26/22 tablet carica papaya (Papaya Enzyme 1 tab PO QDAY 10/17/18 01/26/22 tablet) cholecalciferol (vitamin D3) 125 5,000 unit PO QDAY 10/17/18 01/26/22 mcg (5,000 unit) capsule multivitamin with iron-mineral 1 tab PO QDAY 01/08/19 01/26/22 vitamin B complex 1 tab PO QDAY 01/08/19 01/26/22 torsemide 100 mg tablet 50 mg PO QAM 01/18/21 01/26/22 Previous Rx's Medication Instructions Recorded cyanocobalamin (vitamin B-12) 1,000 mcg PO QDAY #1 tab 11/06/17 1,000 mcg tablet (Vitamin B-12) potassium chloride 10 mEq 20 meq PO QDAY #180 tabs 01/17/21 tablet,extended release(part/cryst) (Klor-Con M) Allergies Allergy/AdvReac Type Severity Reaction Status Date / Time oxycodone AdvReac Intermediate Nausea/Vomi Verified 01/26/22 07:33 ting pravastatin [PRAVASTATIN] AdvReac Mild LOOSE STOOL Verified 01/26/22 07:33 Review of Systems ROS ROS Narrative: Narrative: All systems ED: reviewed and negative except as stated. PFSH Narrative Patient History Narrative: Narrative: Medical/Surgical/Family History All Active Problems (Updated 07/14/22 @ 06:18 by Ashu Cardenas DO) Hematemesis (Acute) Acute hypokalemia (Acute) Acute epigastric pain (Acute) Left inguinal hernia (Acute) Erica albicans infection (Acute) Ulcerative esophagitis (Chronic) Actinic keratoses (Chronic) Hypotension (Chronic) Diverticulitis (Acute) Upper GI bleed (Chronic) Vaccine counseling (Chronic) Enlarged prostate (Chronic) PVD (peripheral vascular disease) (Chronic) Sebaceous cyst (Chronic) Cataracts, bilateral (Chronic) Atrial flutter (Chronic) Non compliance w medication regimen (Chronic) Tremor (Chronic) Left hip pain (Chronic) Umbilical hernia (Chronic) Atrial fibrillation (Chronic) Osteopenia (Chronic) Shortness of Breath (Chronic) History of esophagogastroduodenoscopy (Chronic 05/05/14) History of colonoscopy (Chronic 05/06/14) Xerosis of skin (Chronic 11/07/13) Tricuspid regurgitation (Chronic) Tachycardia (Chronic) Seborrheic keratosis (Chronic 11/07/13) Reactive airway disease (Chronic 12/22/11) Pulmonary hypertension, secondary (Chronic) Lung nodule (Chronic) Mitral valve regurgitation (Chronic) Essential hypertension (Chronic 12/22/11) Hyperlipidemia (Chronic 12/22/11) Hiatal hernia (Chronic 05/05/14) Heart disease (Chronic) GERD (gastroesophageal reflux disease) (Chronic 11/02/10) Food intolerance (Chronic 09/24/13) Esophageal stricture (Chronic 05/05/14) Eczema (Chronic 11/07/13) Dyspnea (Chronic 12/28/12) Diverticulosis of colon (Chronic) Diarrhea (Chronic 04/07/14) Cough (Chronic 10/04/11) COPD (chronic obstructive pulmonary disease) (Chronic) Cardiomyopathy, secondary (Chronic) Cardiomegaly (Chronic 07/20/12) Bronchitis, chronic with acute exacerbation (Chronic) Arrhythmia (Chronic 01/22/14) Anemia (Chronic 11/02/10) Erectile dysfunction (Chronic) Congestive heart failure (Chronic) Peptic stricture of esophagus (Chronic) Reflux esophagitis (Chronic) Garber's esophagus (Chronic) Medical History Actinic keratoses Acute exacerbation of chronic obstructive airways disease Anemia (11/02/10) Hematemesis while in the hospital Arrhythmia (01/22/14) Atrial flutter and PVC's Atrial fibrillation Postoperative Garber's esophagus Resolved on PPI drug but patient stopped PPI drug Basal cell carcinoma of skin other and unspecified parts of face Breast tenderness (09/24/13) Bronchitis, chronic with acute exacerbation Cardiomegaly (07/20/12) [place] Cardiomyopathy, secondary Non-ischemic CHF exacerbation Congestive heart failure COPD (chronic obstructive pulmonary disease) Follows with pulmonology. Encourage him to take long-acting bronchodilators, but he is resistant. Cough (10/04/11) Diarrhea (04/07/14) Diverticulosis of colon Dyspnea (12/28/12) Eczema (11/07/13) Dr. Lloyd Erectile dysfunction We will check testosterone levels again Esophageal stricture (05/05/14) Essential hypertension (12/22/11) Food intolerance (09/24/13) GERD (gastroesophageal reflux disease) (11/02/10) History of Garber's esophagus and severe esophagitis Heart disease Valvular Hiatal hernia (05/05/14) Dr. Lane Hyperlipidemia (12/22/11) Hyperplastic rectal polyp (01/06/10) Lung nodule Mitral valve regurgitation Osteopenia Peptic stricture of esophagus Pneumonia (12/22/11) Pulmonary hypertension, secondary Reactive airway disease (12/22/11) Reflux esophagitis Severe ulcerative reflux esophagitis on EGD 08/22/2017 Seborrheic keratosis (11/07/13) Dr. Lloyd Sepsis Recent hospitalization. Afebrile at present. Shortness of Breath Denies but speaks in short sentences Squamous cell carcinoma in situ of skin Tachycardia Ventricular Tricuspid regurgitation Ulcerative esophagitis Xerosis of skin (11/07/13) Dr. Lloyd sebaceous cyst Surgical History History of colonoscopy (05/06/14) 01/06/[address] Ortiz. 05/06/14 normal. History of esophagogastroduodenoscopy (05/05/14) 05/05/14 - OK on PPI. 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 08/22/17 - severe reflux esophagitis with stricture and Garber's esophagus. History of left inguinal hernia repair 10/05/2021 History of mitral valve repair (05/15/13) History of right inguinal hernia repair 07/31/2018 History of tricuspid valve repair (05/13/13) History of valvuloplasty 2003 - Mitral & Tricuspid Family History Mother Asthma Father , age 80 Cardiac disease Sister Cardiac disease Mitral valve disease Social History Smoking Status: Never smoker Alcohol Intake Frequency: does not drink Substance Use: does not use Exam Narrative Narrative: Narrative: General Limitations: no limitations General appearance: Present grimacing; Absent in distress ENT ENT: Present normal oropharynx and mucous membranes moist Chest Chest: Present normal inspection; Absent tenderness Respiratory Respiratory: Present normal lung sounds bilaterally; Absent respiratory distress Cardiovascular Cardiovascular: Present regular rate and normal rhythm Adbominal Abdominal: Present soft, tenderness and normal bowel sounds Expanded Abdominal Abdominal Tenderness: Present epigastrium Extremities Extremities: Present normal capillary refill Back Back: Absent CVA tenderness (R) or CVA tenderness (L) Neurological Neurological: Present alert and oriented X3 Psychiatric Psychiatric: Present normal affect and normal mood Skin Skin: Present warm (WNL) and intact Course Course Course Narrative: Patient was evaluated for epigastric pain. Looking at patient's history and going through his records including his surgical records he does have a history of GERD with severe esophagitis with hemorrhage in the past. Believe patient most likely has an upper GI bleed as he does have some hematemesis that is coffee-ground in nature. We did tested and was positive for blood. IV Protonix was administered for suspected GI bleed. Patient was given IV Zofran and his nausea improved. He was given a GI cocktail with some improvement in his discomfort. He was then given IV fentanyl and his epigastric pain improved. Patient reported the pain that radiated into his chest and there was concern for MT but EKG was unremarkable. His troponin was also negative. Chest x-ray obtained with image reviewed myself with no acute cardiopulmonary finding. Patient hemoglobin hematocrit were stable. Cytosis with elevated white cell count with elevated procalcitonin increased suspicion for possible infection. Blood cultures were obtained and patient was given IV Rocephin. Lactic acid within normal limits. CT of the abdomen pelvis has been obtained and is currently pending. Other labs still include hepatic panel, amylase and lipase are still pending. Patient has been evaluated by Dr. Amador in the past and Dr. Amador is here this week from GI so think it be worth it to talk to Dr. Amador once everything has returned. Case will be signed out to Dr. Palmer pending remaining labs and CT results and discussion with Dr. Amador to determine final disposition. Vital Signs Vital signs: Vital Signs Temperature 97.6 F 07/14/22 04:57 Pulse Rate 70 07/14/22 04:57 Respiratory Rate 16 07/14/22 04:57 Blood Pressure 100/86 07/14/22 04:57 Pulse Oximetry (%) 92 07/14/22 04:57 Oxygen Delivery Method Room Air 07/14/22 04:57 Temperature 97.6 F 07/14/22 04:57 Pulse Rate 64 07/14/22 05:10 Respiratory Rate 19 07/14/22 05:10 Blood Pressure 138/82 07/14/22 05:10 Pulse Oximetry (%) 95 07/14/22 05:10 Oxygen Delivery Method Room Air 07/14/22 05:31 MDM MDM Narrative Medical decision making narrative: Narrative: Differential Diagnosis Differential Diagnosis: Gastritis, pud, sbo, MT, cholecystitis, pancreatitis Medical Records Medical records reviewed: Yes I reviewed the patient's medical records. Lab Data Lab results reviewed: Yes I reviewed the patient's lab results. 07/14/22 05:07 Labs: Lab Results 07/14/22 07/14/22 07/14/22 Range/Units 05:07 05:07 05:08 WBC 17.5 H (4.5-11.0) K/mcL RBC 4.81 (4.63-6.08) M/mcL Hgb 14.4 (13.7-17.5) g/dL Hct 43.3 (40.1-51.0) % POC Hct (41-55) MCV 90.0 (80.0-100.0) fL MCH 29.9 (26.0-34.0) pg MCHC 33.3 (31.0-36.0) g/dL RDW 14.1 (11.5-14.5) % Plt Count 283 (140-440) K/mcL MPV 9.9 (8.8-12.5) fL Immature Gran % (Auto) 0.5 (0.0-0.5) % Neut % (Auto) 84.7 H (38.0-78.0) % Lymph % (Auto) 7.7 L (15.5-49.0) % [place] % (Auto) 6.5 (1.0-12.0) % Eos % (Auto) 0.3 (0.0-7.0) % Baso % (Auto) 0.3 (0.0-2.0) % Lymph # (Auto) 1.35 L (1.50-4.80) K/mcL [place] # (Auto) 1.13 H (0.10-0.90) K/mcL Eos # (Auto) 0.05 (0.00-0.70) K/mcL Baso # (Auto) 0.05 (0.00-0.30) K/mcL Immature Gran # 0.08 H (0.00-0.05) K/mcl Absolute Neutrophils 14.83 H (1.80-8.00) K/mcL POC VBG pH (7.32-7.42) POC VBG pCO2 at Temp (41-51) POC VBG pO2 (25-40) POC VBG HCO3 (24-28) POC VBG Total CO2 (25-29) POC Venous O2 Sat (40-70) POC VBG Base Excess (-2-2) VBG Lactic Acid (0.5-2) POC Sodium (133-145) POC Potassium (3.3-5.1) POC Chloride (96-108) POC Total CO2 (22-30) POC BUN (6-20) POC Creatinine (0.6-1.2) POC Glucose (70-105) POC WB Ioniz Calcium (1.16-1.32) Total Bilirubin 4.1 H (0.1-1.0) mg/dL Direct Bilirubin 3.4 H (<0.3) mg/dL AST 251 H (<40) U/L ALT 190 H (<40) U/L Alkaline Phosphatase 153 H (39-117) U/L NT-Pro-B Natriuret Pep 796.6 H (<450.0) pg/mL Total Protein 7.9 (5.9-8.4) gm/dL Albumin 4.2 (3.2-5.2) gm/dL Globulin 3.7 (2.2-3.7) gm/dL Amylase (28-100) U/L Procalcitonin (<0.10) ng/mL POC Troponin I 0.02 (0.00-0.08) 07/14/22 07/14/22 07/14/22 Range/Units 05:09 05:42 06:13 WBC (4.5-11.0) K/mcL RBC (4.63-6.08) M/mcL Hgb (13.7-17.5) g/dL Hct (40.1-51.0) % POC Hct 46.0 (41-55) MCV (80.0-100.0) fL MCH (26.0-34.0) pg MCHC (31.0-36.0) g/dL RDW (11.5-14.5) % Plt Count (140-440) K/mcL MPV (8.8-12.5) fL Immature Gran % (Auto) (0.0-0.5) % Neut % (Auto) (38.0-78.0) % Lymph % (Auto) (15.5-49.0) % [place] % (Auto) (1.0-12.0) % Eos % (Auto) (0.0-7.0) % Baso % (Auto) (0.0-2.0) % Lymph # (Auto) (1.50-4.80) K/mcL [place] # (Auto) (0.10-0.90) K/mcL Eos # (Auto) (0.00-0.70) K/mcL Baso # (Auto) (0.00-0.30) K/mcL Immature Gran # (0.00-0.05) K/mcl Absolute Neutrophils (1.80-8.00) K/mcL POC VBG pH (7.32-7.42) POC VBG pCO2 at Temp (41-51) POC VBG pO2 (25-40) POC VBG HCO3 (24-28) POC VBG Total CO2 (25-29) POC Venous O2 Sat (40-70) POC VBG Base Excess (-2-2) VBG Lactic Acid (0.5-2) POC Sodium 138 (133-145) POC Potassium 3.2 L (3.3-5.1) POC Chloride 99 (96-108) POC Total CO2 29.0 (22-30) POC BUN 22 H (6-20) POC Creatinine 1.0 (0.6-1.2) POC Glucose 207 H (70-105) POC WB Ioniz Calcium 1.11 L (1.16-1.32) Total Bilirubin (0.1-1.0) mg/dL Direct Bilirubin (<0.3) mg/dL AST (<40) U/L ALT (<40) U/L Alkaline Phosphatase (39-117) U/L NT-Pro-B Natriuret Pep (<450.0) pg/mL Total Protein (5.9-8.4) gm/dL Albumin (3.2-5.2) gm/dL Globulin (2.2-3.7) gm/dL Amylase 2481 H (28-100) U/L Procalcitonin 0.26 H (<0.10) ng/mL POC Troponin I (0.00-0.08) 07/14/22 Range/Units 06:32 WBC (4.5-11.0) K/mcL RBC (4.63-6.08) M/mcL Hgb (13.7-17.5) g/dL Hct (40.1-51.0) % POC Hct (41-55) MCV (80.0-100.0) fL MCH (26.0-34.0) pg MCHC (31.0-36.0) g/dL RDW (11.5-14.5) % Plt Count (140-440) K/mcL MPV (8.8-12.5) fL Immature Gran % (Auto) (0.0-0.5) % Neut % (Auto) (38.0-78.0) % Lymph % (Auto) (15.5-49.0) % [place] % (Auto) (1.0-12.0) % Eos % (Auto) (0.0-7.0) % Baso % (Auto) (0.0-2.0) % Lymph # (Auto) (1.50-4.80) K/mcL [place] # (Auto) (0.10-0.90) K/mcL Eos # (Auto) (0.00-0.70) K/mcL Baso # (Auto) (0.00-0.30) K/mcL Immature Gran # (0.00-0.05) K/mcl Absolute Neutrophils (1.80-8.00) K/mcL POC VBG pH 7.30 L (7.32-7.42) POC VBG pCO2 at Temp 63.2 H* (41-51) POC VBG pO2 17 L (25-40) POC VBG HCO3 30.8 H (24-28) POC VBG Total CO2 33.0 H (25-29) POC Venous O2 Sat 19.0 L (40-70) POC VBG Base Excess 4.0 H* (-2-2) VBG Lactic Acid 1.8 (0.5-2) POC Sodium (133-145) POC Potassium (3.3-5.1) POC Chloride (96-108) POC Total CO2 (22-30) POC BUN (6-20) POC Creatinine (0.6-1.2) POC Glucose (70-105) POC WB Ioniz Calcium (1.16-1.32) Total Bilirubin (0.1-1.0) mg/dL Direct Bilirubin (<0.3) mg/dL AST (<40) U/L ALT (<40) U/L Alkaline Phosphatase (39-117) U/L NT-Pro-B Natriuret Pep (<450.0) pg/mL Total Protein (5.9-8.4) gm/dL Albumin (3.2-5.2) gm/dL Globulin (2.2-3.7) gm/dL Amylase (28-100) U/L Procalcitonin (<0.10) ng/mL POC Troponin I (0.00-0.08) EKG Data EKG #1: EKG attestation: Yes I reviewed and interpreted this EKG. Rate: normal Rhythm: NSR Voltage: c/w LVH Heart block present: None ST segment elevation in: None ST segment depression in: None QTc: normal QRS morphology: Present normal Interpretation: no acute changes and nonspecific ST-T wave changes Core Measures AMI Core Measures Followed: Yes Discharge Plan Patient/Caregiver Discharge Instructions Pt seen by COMPLIANCE NURSE/PA only: No Clinical Impression: Acute hypokalemia, Acute epigastric pain Hematemesis Qualifiers: Nausea presence: with nausea Qualified Code(s): K92.0 - Hematemesis Patient Disposition: Still a Patient Condition: Fair Follow up with: Phillip Gaines DO [Primary Care Provider] - Prescriptions: No Action potassium chloride [Klor-Con M10] 10 mEq tablet,ER particles/crystals 20 meq PO QDAY Qty: 180 3RF cyanocobalamin (vitamin B-12) [Vitamin B-12] 1,000 mcg tablet 1,000 mcg PO QDAY Qty: 1 0RF zinc 50 mg tablet 50 mg PO QDAY Patient Comments: "Occasionally" carica papaya [Papaya Enzyme] tablet 1 tab PO QDAY Patient Comments: Occasionally vitamin B complex tablet 1 tab PO QDAY multivitamin with iron-mineral tablet tablet 1 tab PO QDAY torsemide 100 mg tablet 50 mg PO QAM coQ10 (ubiquinol) 100 mg capsule 100 mg PO QDAY pyridoxine (vitamin B6) 50 mg capsule 50 mg PO QDAY ascorbic acid (vitamin C) 500 mg tablet 500 mg PO QDAY Patient Comments: Patient states occasionally cholecalciferol (vitamin D3) 5,000 unit capsule 5,000 unit PO QDAY Patient Comments: Occasionally
[2022-07-14] MEDS ORDERED: PANTOPRAZOLE 40 MG VIAL IV ONE (05:26)
[2022-07-14 05:45] LABS: Basophils # (Auto) 0.05 K/mcL (0.00-0.30); Basophils % (Auto) 0.3 % (0.0-2.0); Eosinophils # (Auto) 0.05 K/mcL (0.00-0.70); Eosinophils % (Auto) 0.3 % (0.0-7.0); Hematocrit 43.3 % (40.1-51.0); Hemoglobin 14.4 g/dL (13.7-17.5); Lymphocytes # (Auto) 1.35 K/mcL (1.50-4.80); Lymphocytes % (Auto) 7.7 % (15.5-49.0); Mean Corpuscular HGB Conc 33.3 g/dL (31.0-36.0); Mean Platelet Volume 9.9 fL (8.8-12.5); Monocytes # (Auto) 1.13 K/mcL (0.10-0.90); Monocytes % (Auto) 6.5 % (1.0-12.0); Neutrophils % (Auto) 84.7 % (38.0-78.0); Platelet Count 283 K/mcL (140-440); RBC 4.81 M/mcL (4.63-6.08); Red Cell Distribution Width 14.1 % (11.5-14.5); WBC 17.5 K/mcL (4.5-11.0)
[2022-07-14 06:07] LABS: proBNP 796.6 pg/mL (<450.0)
[2022-07-14 06:08] LABS: ALT/SGPT 190 U/L (<40); AST/SGOT 251 U/L (<40); Albumin 4.2 gm/dL (3.2-5.2); Alkaline Phosphatase 153 U/L (39-117); Bilirubin,Direct 3.4 mg/dL (<0.3); Bilirubin,Total 4.1 mg/dL (0.1-1.0); Globulin 3.7 gm/dL (2.2-3.7)
[2022-07-14] MEDS ORDERED: fentaNYL 100 MCG/2 ML VIAL IV ONE (06:12)
[2022-07-14] MEDS ORDERED: 0.9 % SODIUM CHLORIDE 1,000 ML IV ONE (06:12)
[2022-07-14 06:24] LABS: Amylase 2481 U/L (28-100)
[2022-07-14] MEDS ORDERED: cefTRIAXone 2 GM in DEXTROSE 5% IN WATER 50 ML IV ONE (06:43)
[2022-07-14] MEDS ORDERED: ONDANSETRON 4 MG/2 ML VIAL IV PRN (06:53)
[2022-07-14] MEDS: morphine 2 MG/ML VIAL IV PRN ×2 (07:43→09:31)
--- NOTE | 2022-07-14 07:52 | XRay Report ---
HISTORY: Chest pain FINDINGS: There is a moderate size hiatus hernia and left heart border. There are bulla medially in the right lower lobe. There are linear bands of scar tissue in the left mid thorax and right lower lobe. Heart size is normal. There is no congestive heart failure or pleural effusion. There has been a prior sternotomy. Comparison with prior x-ray from 09/30/21 shows no significant change. IMPRESSION: Stable mild scarring and COPD in the lung bases. Stable hiatus hernia Interpreted and Authenticated by: Yoan Dawn 07/14/22
--- NOTE | 2022-07-14 08:07 | Cat Scan Report ---
History: Abdominal and epigastric pain and elevated liver enzymes and elevated lipase level TECHNIQUE: Following injection of intravenous nonionic contrast patient was imaged during the portal venous phase from above the diaphragm through the symphysis pubis. Sagittal and coronal reformats were created. The radiation exposure was limited using dose reduction technology. FINDINGS: There are large blebs medially in both lung bases, right larger than left. There are also bands of scar tissue in both lung bases. Contiguous with the pleural surface lateral basal segment of the left lower lobe there is a 4 x 6 mm nodule. This is unchanged since 2019 and represent scar tissue. There is a moderate sized paraesophageal hiatus hernia containing the cardia and fundus the stomach. This has enlarged since the prior CT done on 09/08/18. There is also a small hiatus hernia. The wall of the distal esophagus is concentrically thickened measuring up to 8 mm. No focal mass is seen. This may be due to esophagitis. The liver is normal in size. There is mild generalized fatty infiltration. The gallbladder is filled with a large amount of sludge. The wall is not thickened or inflamed and the bile ducts are nondilated. The spleen is normal in size but heterogeneous. It contains numerous small ill-defined low-attenuation lesions. These have been present since at least 2013 and have remained stable. There is subtle stranding of the fat around the head of the pancreas. The pancreas itself appears normal without apparent inflammation or neoplasm. Pancreatic duct is nondilated. The adrenals are normal. There are really small cortical cysts in the left kidney and a solitary tiny cyst posteriorly in the right kidney. No kidney stone, mass or hydronephrosis are present on either side. Aorta is normal in caliber and there are scattered plaques. Small intestine is normal. There are numerous diverticula in the sigmoid colon but without evidence of acute diverticulitis. There is no appendicitis or bowel obstruction. Prostate is moderately enlarged and indents the base of the bladder. Urinary bladder appears normal. There is severe degenerative disc disease and arthritis in the lumbar spine with severe disc space narrowing at L1-2 and L2-3 and moderate narrowing at L3-4 and L4-5. Grade 1 spondylolisthesis is present at L4-5 due to severe arthritis in the facets. There is a trace amount of ascites along the right lateral border of the liver. No adenopathy or abscess are present. There is a fat-containing umbilical hernia measuring 3.5 cm. This is a chronic stable finding. IMPRESSION: Enlarging paraesophageal hiatus hernia containing cardia and upper fundus of the stomach. Thickened wall of the distal esophagus suggesting esophagitis Mild fatty infiltration of the liver Enlarging quantity of sludge/noncalcified stone in the gallbladder but without evidence of cholecystitis Diverticulosis without diverticulitis Nonspecific fat stranding around the head of the pancreas which may be due to low-grade pancreatitis Heterogeneous spleen with no significant global climate change researcher the past nine years. Interpreted and Authenticated by: Yoan Dawn 07/14/22
--- NOTE | 2022-07-14 08:51 | Ultrasound Report ---
History: Right upper quadrant pain FINDINGS: The liver is normal in size and homogeneous. There is no evidence of a mass. Doppler shows normal blood flow in the hepatic and portal veins. Gallbladder is filled with numerous large noncalcified stones and sludge. The wall is thickened measuring up to 8 mm. No pericholecystic fluid collection is present. The patient was tender while scanning over the gallbladder. The common bile duct is 3.3 mm in diameter. Visualized segments of the pancreas are normal without evidence of pancreatitis. Parts of the pancreas are obscured by bowel gas. IMPRESSION: Cholelithiasis and cholecystitis Dr. Palmer was called with the report Interpreted and Authenticated by: Yoan Dawn 07/14/22
--- NOTE | 2022-07-14 11:51 | Magnetic Resonance Report ---
History: Cholelithiasis and cholecystitis TECHNIQUE: MRCP was performed using multiple pulse sequences. 3-D Reformats of the bile ducts were created. FINDINGS: The gallbladder is filled with multiple stones and sludge. The wall is thickened and inflamed. There is no pericholecystic fluid collection. The intra and extrahepatic bile ducts are normal in caliber. There is no evidence of a stone or mass in the duct. The pancreas is normal without evidence of dilatation of the duct and no evidence of pancreatitis. Multiple small lesions are scattered throughout the spleen, measuring up to 1 cm. These have low-attenuation on the preceding CT scan. These have been present for many years and are therefore felt to be benign. Small amount of ascites is seen around the right lobe of liver. There is no abscess. There are a few small renal cysts. The kidneys are otherwise normal. There are small patchy infiltrates in both lung bases which could be pneumonia or atelectasis. IMPRESSION: Cholelithiasis and cholecystitis Normal caliber bile ducts without evidence of a stone. No evidence of pancreatitis Multiple small parenchymal lesions in the spleen. This may be due to prior infection, amyloidosis, Gaucher's disease or hematologic disorder. Interpreted and Authenticated by: Yoan Dawn 07/14/22
[2022-07-14] MEDS: PIPERACILLIN SODIUM/TAZOBACTAM 3.375 GM in DEXTROSE 5% IN WATER 50 ML IV SCH ×2 (14:59→18:05)
--- NOTE | 2022-07-14 15:15 | General Surg History&Physical ---
HPI History of Present Illness Patient information: Note initiated : 07/14/22 at 3:12 pm Service Date, if different from initiated Date: [] Patient: Dylan Diaz a 77 y/o M admitted on 07/14/22 for epigastric pain. Chief Complaint: [] Chief complaint: biliary pancreatitis History of present illness: Mr. Diaz is a 77 year old M with history of acute onset of epigastric and bilateral upper quadrant pain about 10 PM last evening. He had 3 episodes of nausea and vomiting and visited the emergency room. Evaluation reveals gallstone sludge and stones. White blood count was 17.5 and LFTs were all elevated including AST, ALT, alkaline phosphatase. Lipase is greater than 3000 and amylase is 2481. Patient had MRCP which showed sludge and small stones with pericholecystic fluid. Patient is felt to have acute biliary pancreatitis without evidence of common bile duct stone at this time. He is admitted for treatment of his pancreatitis and will have cholecystectomy during this admission. Review of Systems All systems: reviewed and no additional remarkable complaints except as stated Gastrointestinal Gastrointestinal: Present abdominal pain, bloating, cramping, dyspepsia, heartburn, nausea and vomiting PFSH PFSH All Active Problems (Updated 07/14/22 @ 15:22 by Mare Calvert MD) Acute cholecystitis (Acute) Acute biliary pancreatitis (Acute) Hematemesis (Acute) Acute hypokalemia (Acute) Acute epigastric pain (Acute) Acute cholecystitis (Acute) Elevated amylase and lipase (Acute) Left inguinal hernia (Acute) Erica albicans infection (Acute) Ulcerative esophagitis (Chronic) Actinic keratoses (Chronic) Hypotension (Chronic) Diverticulitis (Acute) Upper GI bleed (Chronic) Vaccine counseling (Chronic) Enlarged prostate (Chronic) PVD (peripheral vascular disease) (Chronic) Sebaceous cyst (Chronic) Cataracts, bilateral (Chronic) Atrial flutter (Chronic) Non compliance w medication regimen (Chronic) Tremor (Chronic) Left hip pain (Chronic) Umbilical hernia (Chronic) Atrial fibrillation (Chronic) Osteopenia (Chronic) Shortness of Breath (Chronic) History of esophagogastroduodenoscopy (Chronic 05/05/14) History of colonoscopy (Chronic 05/06/14) Xerosis of skin (Chronic 11/07/13) Tricuspid regurgitation (Chronic) Tachycardia (Chronic) Seborrheic keratosis (Chronic 11/07/13) Reactive airway disease (Chronic 12/22/11) Pulmonary hypertension, secondary (Chronic) Lung nodule (Chronic) Mitral valve regurgitation (Chronic) Essential hypertension (Chronic 12/22/11) Hyperlipidemia (Chronic 12/22/11) Hiatal hernia (Chronic 05/05/14) Heart disease (Chronic) GERD (gastroesophageal reflux disease) (Chronic 11/02/10) Food intolerance (Chronic 09/24/13) Esophageal stricture (Chronic 05/05/14) Eczema (Chronic 11/07/13) Dyspnea (Chronic 12/28/12) Diverticulosis of colon (Chronic) Diarrhea (Chronic 04/07/14) Cough (Chronic 10/04/11) COPD (chronic obstructive pulmonary disease) (Chronic) Cardiomyopathy, secondary (Chronic) Cardiomegaly (Chronic 07/20/12) Bronchitis, chronic with acute exacerbation (Chronic) Arrhythmia (Chronic 01/22/14) Anemia (Chronic 11/02/10) Erectile dysfunction (Chronic) Congestive heart failure (Chronic) Peptic stricture of esophagus (Chronic) Reflux esophagitis (Chronic) Garber's esophagus (Chronic) Medical History Actinic keratoses Acute exacerbation of chronic obstructive airways disease Anemia (11/02/10) Hematemesis while in the hospital Arrhythmia (01/22/14) Atrial flutter and PVC's Atrial fibrillation Postoperative Garber's esophagus Resolved on PPI drug but patient stopped PPI drug Basal cell carcinoma of skin other and unspecified parts of face Breast tenderness (09/24/13) Bronchitis, chronic with acute exacerbation Cardiomegaly (07/20/12) [place] Cardiomyopathy, secondary Non-ischemic CHF exacerbation Congestive heart failure COPD (chronic obstructive pulmonary disease) Follows with pulmonology. Encourage him to take long-acting bronchodilators, but he is resistant. Cough (10/04/11) Diarrhea (04/07/14) Diverticulosis of colon Dyspnea (12/28/12) Eczema (11/07/13) Dr. Lloyd Erectile dysfunction We will check testosterone levels again Esophageal stricture (05/05/14) Essential hypertension (12/22/11) Food intolerance (09/24/13) GERD (gastroesophageal reflux disease) (11/02/10) History of Garber's esophagus and severe esophagitis Heart disease Valvular Hiatal hernia (05/05/14) Dr. Lane Hyperlipidemia (12/22/11) Hyperplastic rectal polyp (01/06/10) Lung nodule Mitral valve regurgitation Osteopenia Peptic stricture of esophagus Pneumonia (12/22/11) Pulmonary hypertension, secondary Reactive airway disease (12/22/11) Reflux esophagitis Severe ulcerative reflux esophagitis on EGD 08/22/2017 Seborrheic keratosis (11/07/13) Dr. Lloyd Sepsis Recent hospitalization. Afebrile at present. Shortness of Breath Denies but speaks in short sentences Squamous cell carcinoma in situ of skin Tachycardia Ventricular Tricuspid regurgitation Ulcerative esophagitis Xerosis of skin (11/07/13) Dr. Lloyd sebaceous cyst Surgical History History of colonoscopy (05/06/14) 01/06/[address] Ortiz. 05/06/14 normal. History of esophagogastroduodenoscopy (05/05/14) 05/05/14 - OK on PPI. 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 08/22/17 - severe reflux esophagitis with stricture and Garber's esophagus. History of left inguinal hernia repair 10/05/2021 History of mitral valve repair (05/15/13) History of right inguinal hernia repair 07/31/2018 History of tricuspid valve repair (05/13/13) History of valvuloplasty 2003 - Mitral & Tricuspid Family History Mother Asthma Father , age 80 Cardiac disease Sister Cardiac disease Mitral valve disease Social History household members: spouse housing: house lives independently: Yes marital status: education level: college occupational status: retired occupation: [employer] smoking status: Never smoker alcohol intake frequency: does not drink substance use type: does not use MEDS/ALLERGIES Home Medications and Allergies Home Medications Medication Instructions Recorded Confirmed Type coQ10 (ubiquinol) 100 mg capsule 100 mg PO QDAY 10/15/17 07/14/22 History pyridoxine (vitamin B6) 50 mg 50 mg PO QDAY 10/15/17 07/14/22 History capsule cyanocobalamin (vitamin B-12) 1,000 mcg PO QDAY #1 tab 11/06/17 07/14/22 Rx 1,000 mcg tablet (Vitamin B-12) zinc 50 mg tablet 50 mg PO QDAY 09/16/18 07/14/22 History ascorbic acid (vitamin C) 500 mg 500 mg PO QDAY 10/17/18 07/14/22 History tablet cholecalciferol (vitamin D3) 125 5,000 unit PO QDAY 10/17/18 07/14/22 History mcg (5,000 unit) capsule multivitamin with iron-mineral 1 tab PO QDAY 01/08/19 07/14/22 History vitamin B complex 1 tab PO QDAY 01/08/19 07/14/22 History potassium chloride 10 mEq 20 meq PO QDAY #180 tabs 01/17/21 07/14/22 Rx tablet,extended release(part/cryst) (Klor-Con M) torsemide 100 mg tablet 50 mg PO QAM 01/18/21 07/14/22 History Allergies Allergy/AdvReac Type Severity Reaction Status Date / Time oxycodone AdvReac Intermediate Nausea/Vomi Verified 01/26/22 07:33 ting pravastatin [PRAVASTATIN] AdvReac Mild LOOSE STOOL Verified 01/26/22 07:33 Physical Examination Vital Signs Vital signs: Temp Pulse Resp BP Pulse Ox O2 Del Method 99.3 F H 51 L 16 124/66 92 Room Air 07/14/22 13:13 07/14/22 13:13 07/14/22 13:13 07/14/22 13:13 07/14/22 13:13 07/14/22 13:13 General physical appearance General physical exam: well developed, well nourished, no distress and moderate pain Eyes Eye exam: PERRL and normal ocular movement ENT ENT exam: normal mucosa Head Head exam IM: Present atraumatic, normal inspection and normocephalic Neck Neck exam: no masses, no bruits, trachea midline, no lymphadenopathy and no venous distension Cardiovascular Cardiovascular exam IM: Present normal rate and rhythm, RRR, +S1 and +S2; Absent gallop or JVD Respiratory Respiratory exam: normal expansion, normal respiratory effort and clear to auscultation Abdomen Abdomen: Present tender (Epigastric and left upper quadrant tenderness) and b owel sounds (Normal bowel sounds) Hernia: Present umbilical (Umbilical hernia) Integumentary Integumentary: Present no rash, no growths and no abnormal pigmentation Neurologic Neurologic: Present normal coordination and normal sensation Musculoskeletal Musculoskeletal: Present normal gait and normal posture Psychiatric Psychiatric: Present oriented to time, oriented to person, oriented to place, speech is normal and memory intact Results Labs 07/14/22 05:07 Labs: Abnormal lab results 07/14/22 07/14/22 07/14/22 Range/Units 05:07 05:07 05:09 WBC 17.5 H (4.5-11.0) K/mcL Neut % (Auto) 84.7 H (38.0-78.0) % Lymph % (Auto) 7.7 L (15.5-49.0) % Lymph # (Auto) 1.35 L (1.50-4.80) K/mcL Reeves # (Auto) 1.13 H (0.10-0.90) K/mcL Immature Gran # 0.08 H (0.00-0.05) K/mcl Absolute Neutrophils 14.83 H (1.80-8.00) K/mcL POC VBG pH (7.32-7.42) POC VBG pCO2 at Temp (41-51) POC VBG pO2 (25-40) POC VBG HCO3 (24-28) POC VBG Total CO2 (25-29) POC Venous O2 Sat (40-70) POC VBG Base Excess (-2-2) POC Potassium 3.2 L (3.3-5.1) POC BUN 22 H (6-20) POC Glucose 207 H (70-105) POC WB Ioniz Calcium 1.11 L (1.16-1.32) Total Bilirubin 4.1 H (0.1-1.0) mg/dL Direct Bilirubin 3.4 H (<0.3) mg/dL AST 251 H (<40) U/L ALT 190 H (<40) U/L Alkaline Phosphatase 153 H (39-117) U/L NT-Pro-B Natriuret Pep 796.6 H (<450.0) pg/mL Amylase (28-100) U/L Lipase (7-60) U/L Procalcitonin (<0.10) ng/mL 07/14/22 07/14/22 07/14/22 Range/Units 05:42 06:13 06:32 WBC (4.5-11.0) K/mcL Neut % (Auto) (38.0-78.0) % Lymph % (Auto) (15.5-49.0) % Lymph # (Auto) (1.50-4.80) K/mcL Reeves # (Auto) (0.10-0.90) K/mcL Immature Gran # (0.00-0.05) K/mcl Absolute Neutrophils (1.80-8.00) K/mcL POC VBG pH 7.30 L (7.32-7.42) POC VBG pCO2 at Temp 63.2 H* (41-51) POC VBG pO2 17 L (25-40) POC VBG HCO3 30.8 H (24-28) POC VBG Total CO2 33.0 H (25-29) POC Venous O2 Sat 19.0 L (40-70) POC VBG Base Excess 4.0 H* (-2-2) POC Potassium (3.3-5.1) POC BUN (6-20) POC Glucose (70-105) POC WB Ioniz Calcium (1.16-1.32) Total Bilirubin (0.1-1.0) mg/dL Direct Bilirubin (<0.3) mg/dL AST (<40) U/L ALT (<40) U/L Alkaline Phosphatase (39-117) U/L NT-Pro-B Natriuret Pep (<450.0) pg/mL Amylase 2481 H (28-100) U/L Lipase > 3000 H (7-60) U/L Procalcitonin 0.26 H (<0.10) ng/mL Diabetes panel 07/14/22 Range/Units 05:07 AST 251 H (<40) U/L ALT 190 H (<40) U/L Alkaline Phosphatase 153 H (39-117) U/L Total Protein 7.9 (5.9-8.4) gm/dL Albumin 4.2 (3.2-5.2) gm/dL Calcium panel 07/14/22 Range/Units 05:07 Albumin 4.2 (3.2-5.2) gm/dL Adrenal panel 07/14/22 Range/Units 05:07 Total Bilirubin 4.1 H (0.1-1.0) mg/dL AST 251 H (<40) U/L ALT 190 H (<40) U/L Alkaline Phosphatase 153 H (39-117) U/L Total Protein 7.9 (5.9-8.4) gm/dL Albumin 4.2 (3.2-5.2) gm/dL All other labs normal. A/P Assessment and plan (1) Acute biliary pancreatitis: Status: Acute (2) Atrial fibrillation: Status: Chronic Qualifiers: Atrial fibrillation type: chronic Qualified Code(s): I48.2 - Chronic atrial fibrillation (3) Essential hypertension: Status: Chronic (4) COPD (chronic obstructive pulmonary disease): Status: Chronic Comment: Follows with pulmonology. Encourage him to take long-acting bronchodilators, but he is resistant. Qualifiers: COPD type: chronic bronchitis Chronic bronchitis type: simple Qu alified Code(s): J41.0 - Simple chronic bronchitis (5) Acute cholecystitis: Status: Acute Plan Normal saline at 125 cc/h Inpatient panel and CBC to be performed daily Lipase to be performed daily Clear liquids until amylase and lipase are decreased Laparoscopic cholecystectomy after pancreatitis is improved during this admission Sepsis Sepsis Identified: No Time Spent With Patient Time: Total time spent is greater than 50% in coordination of care (as documented) at patient's floor/unit and/or counseling patient:
--- NOTE | 2022-07-14 15:21 | EKG ---
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 Measurements Intervals [place] Rate: 68 P: 0 [place]: 84 QRS: -37 QRSD: 129 T: 98 QT: 487 QTc: 517 Interpretive Statements JUNCTIONAL ESCAPE RHYTHM Paired ventricular premature complexes and multifocal PVCs Nonspecific IVCD with LAD Left ventricular hypertrophy Abnormal T, consider ischemia, lateral leads Electronically Signed On 07-14-2022 15:20:56 PDT by Phillip Dawn M.D. /store/M0/[id number]/[id number]
[2022-07-14] MEDS: 0.9 % SODIUM CHLORIDE 1,000 ML IV SCH (17:22)
[2022-07-14] MEDS: PANTOPRAZOLE 40 MG VIAL IV SCH (17:26)
[2022-07-14] MEDS: HYDROmorphone 0.5 MG/0.5 ML SYRINGE IV PRN (21:41)
[2022-07-15] MEDS: PIPERACILLIN SODIUM/TAZOBACTAM 3.375 GM in DEXTROSE 5% IN WATER 50 ML IV SCH ×5 (00:34→23:51)
[2022-07-15] MEDS: 0.9 % SODIUM CHLORIDE 1,000 ML IV SCH (02:28)
[2022-07-15 06:39] LABS: Basophils # (Auto) 0.03 K/mcL (0.00-0.30); Basophils % (Auto) 0.3 % (0.0-2.0); Eosinophils # (Auto) 0.02 K/mcL (0.00-0.70); Eosinophils % (Auto) 0.2 % (0.0-7.0); Hemoglobin 12.3 g/dL (13.7-17.5); Lymphocytes # (Auto) 0.66 K/mcL (1.50-4.80); Lymphocytes % (Auto) 5.9 % (15.5-49.0); Mean Cell Volume 92.7 fL (80.0-100.0); Mean Corpuscular HGB Conc 32.4 g/dL (31.0-36.0); Mean Platelet Volume 10.2 fL (8.8-12.5); Monocytes # (Auto) 0.85 K/mcL (0.10-0.90); Monocytes % (Auto) 7.6 % (1.0-12.0); Neutrophils % (Auto) 85.6 % (38.0-78.0); Platelet Count 195 K/mcL (140-440); Red Cell Distribution Width 14.7 % (11.5-14.5); WBC 11.3 K/mcL (4.5-11.0)
[2022-07-15 06:51] LABS: ALT/SGPT 101 U/L (<40); AST/SGOT 71 U/L (<40); Alkaline Phosphatase 119 U/L (39-117); Bilirubin,Direct 4.3 mg/dL (<0.3); Bilirubin,Total 4.5 mg/dL (0.1-1.0); Blood Urea Nitrogen 15 mg/dL (8-23); Calcium 8.1 mg/dL (8.6-10.4); Carbon Dioxide 26 mmol/L (22-30); Chloride 102 mmol/L (96-108); Glomerular Filtration Rate 72; Glucose 101 mg/dL (70-105); Lactate Dehydrogenase 137 U/L (135-225); Phosphorous 2.8 mg/dL (2.5-4.5); Triglycerides 46 mg/dL (<150); Uric Acid 4.7 mg/dL (2.5-8.0)
[2022-07-15] MEDS: PANTOPRAZOLE 40 MG VIAL IV SCH ×2 (09:16→17:39)
--- NOTE | 2022-07-15 13:50 | General Surgery Progress Note ---
SUBJECTIVE Subjective Patient information: Note initiated : 07/15/22 at 1:44 pm Service Date, if different from initiated Date: [] Patient: Dylan Diaz 77 y/o M admitted on 07/14/22 for epigastric pain. Chief Complaint: [] Principal diagnosis: Acute biliary pancreatitis; acute cholecystitis with cholelithiasis Interval history: Patient has done well throughout the night. His pain is significantly improved. He has tolerated clear liquids without difficulty. He has been afebrile. White blood count 11.3, hemoglobin 12.3, hematocrit 38, potassium BUN and creatinine are normal. AST ALT and alkaline phosphatase are significantly decreased. Lipase is down to 117. Bilirubin is elevated at one-point. Constitutional Vitals: Vital Signs Temp Pulse Resp BP Pulse Ox O2 Del Method O2 Flow Rate 97.8 F 62 16 118/62 98 Room Air 2 07/15/22 12:00 07/15/22 12:00 07/15/22 12:00 07/15/22 12:00 07/15/22 12:00 07/15/22 12:00 07/15/22 00:00 Period Temp Pulse Resp BP Sys/Villalba Pulse Ox O2 Del Method O2 Flow Rate Last 24 Hr 97.7 F-99.7 F 41-62 16-19 102-119/61-73 94-99 Nasal Cannula- Room Air 2 Intake and Output 07/15/22 07/15/22 07/15/22 03:59 11:59 19:59 Intake Total 1100 1530 Balance 1100 1530 Weight 151 lb 8 oz 151 lb 8 oz Patient Weight 07/16/22 03:59 Weight 151 lb 8 oz Intake & Output: Intake & Output 07/15/22 07/15/22 07/15/22 03:59 11:59 19:59 Intake Total 1100 1530 Balance 1100 1530 Weight 151 lb 8 oz 151 lb 8 oz Intake: IV 1100 1050 Sodium Chloride 0.9% 1,000 ml @ 1000 1000 125 mls/hr IV .Q8H WILLIAMS Rx#: [id number] Zosyn 3.375 gm In Dextrose 5% 100 50 in Water 50 ml @ 100 mls/hr IV Q6H WILLIAMS Rx#:[id number] Oral 480 Other: # Voids 2 Head Head exam: Present atraumatic, normal inspection and normocephalic Eye Eye exam: Present EOMI and scleral icterus ENT ENT exam: Present mucous membranes moist and normal oropharynx Neck Neck exam: Present normal inspection Respiratory Respiratory exam: Present normal respiratory exam and CTAB Cardiovascular Cardiovascular exam: Present normal rate and rhythm, RRR, +S1 and +S2; Absent JVD GI/Abdominal GI/Abdominal exam: Present normal bowel sounds, soft and tenderness (Minimal tenderness in epigastrium and left upper quadrant; no right upper quadrant tenderness); Absent distended Extremities Exam Extremities exam: Present full ROM, normal inspection and neurovascular intact Neurological Exam Neurological exam: Present alert; Absent motor sensory deficit Psychiatric Psychiatric exam: Present normal affect and normal mood A/P Assessment and plan (1) Acute biliary pancreatitis: Status: Acute (2) Acute cholecystitis: Status: Acute (3) COPD (chronic obstructive pulmonary disease): Status: Chronic Comment: Qualifiers: COPD type: chronic bronchitis Chronic bronchitis type: simple Qualified Code(s): J41.0 - Simple chronic bronchitis Plan Patient is clinically improved Pancreatitis is resolved LFTs: Significantly improved Plan will be made to have laparoscopic cholecystectomy in the morning Time Spent With Patient Time: Total time spent is greater than 50% in coordination of care (as documented) at patient's floor/unit and/or counseling patient:
[2022-07-15] MEDS: HYDROmorphone 0.5 MG/0.5 ML SYRINGE IV PRN (16:51)
[2022-07-16] MEDS: PIPERACILLIN SODIUM/TAZOBACTAM 3.375 GM in DEXTROSE 5% IN WATER 50 ML IV SCH ×3 (05:29→17:29)
[2022-07-16 06:48] LABS: Basophils # (Auto) 0.03 K/mcL (0.00-0.30); Basophils % (Auto) 0.3 % (0.0-2.0); Eosinophils # (Auto) 0.11 K/mcL (0.00-0.70); Eosinophils % (Auto) 1.2 % (0.0-7.0); Hemoglobin 12.1 g/dL (13.7-17.5); Lymphocytes # (Auto) 0.46 K/mcL (1.50-4.80); Lymphocytes % (Auto) 4.8 % (15.5-49.0); Mean Cell Volume 93.6 fL (80.0-100.0); Mean Corpuscular HGB Conc 31.8 g/dL (31.0-36.0); Mean Platelet Volume 10.4 fL (8.8-12.5); Monocytes # (Auto) 0.88 K/mcL (0.10-0.90); Monocytes % (Auto) 9.2 % (1.0-12.0); Neutrophils % (Auto) 84.1 % (38.0-78.0); Platelet Count 176 K/mcL (140-440); RBC 4.06 M/mcL (4.63-6.08); Red Cell Distribution Width 14.7 % (11.5-14.5); WBC 9.5 K/mcL (4.5-11.0)
[2022-07-16 07:28] LABS: ALT/SGPT 70 U/L (<40); AST/SGOT 35 U/L (<40); Albumin 2.8 gm/dL (3.2-5.2); Albumin/Globulin Ratio 0.9 (1.0-2.3); Alkaline Phosphatase 116 U/L (39-117); Bilirubin,Direct 1.9 mg/dL (<0.3); Bilirubin,Total 2.4 mg/dL (0.1-1.0); Blood Urea Nitrogen 12 mg/dL (8-23); Calcium 8.3 mg/dL (8.6-10.4); Carbon Dioxide 25 mmol/L (22-30); Chloride 102 mmol/L (96-108); Globulin 3.1 gm/dL (2.2-3.7); Glomerular Filtration Rate 85; Glucose 97 mg/dL (70-105); Lactate Dehydrogenase 152 U/L (135-225); Triglycerides 76 mg/dL (<150); Uric Acid 4.2 mg/dL (2.5-8.0)
[2022-07-16] MEDS ORDERED: IPRATROPIUM/ALBUTEROL 3 ML AMPUL.NEB NEB PRN ×2 (08:00→09:23)
[2022-07-16] MEDS ORDERED: SCOPOLAMINE 1 PATCH PATCH TOPICAL PRN (08:00)
[2022-07-16] MEDS: PANTOPRAZOLE 40 MG VIAL IV SCH ×2 (08:13→17:29)
[2022-07-16] MEDS ORDERED: PROPOFOL 200 MG/20 ML VIAL IV ONE (08:46)
[2022-07-16] MEDS ORDERED: ONDANSETRON 4 MG/2 ML VIAL ONE (08:46)
[2022-07-16] MEDS ORDERED: DEXAMETHASONE 10 MG/ML VIAL ONE (08:46)
[2022-07-16] MEDS ORDERED: LIDOCAINE HCL/PF 100 MG/5 ML SYRINGE IV ONE (08:46)
[2022-07-16] MEDS ORDERED: SUGAMMADEX SODIUM 200 MG/2 ML VIAL IV ONE (08:46)
[2022-07-16] MEDS ORDERED: KETAMINE 50 MG/ML Syringe (ANEST) IV ONE (08:46)
[2022-07-16] MEDS ORDERED: MIDAZOLAM 2 MG/2 ML VIAL ONE (08:46)
[2022-07-16] MEDS ORDERED: fentaNYL 100 MCG/2 ML VIAL IV ONE (08:46)
[2022-07-16] MEDS ORDERED: PHENYLephrine 1 MG/10 ML SYRINGE (ANEST) ONE (08:46)
[2022-07-16] MEDS ORDERED: ROCURONIUM 10 MG/ML ML IV ONE (08:46)
[2022-07-16] MEDS ORDERED: ONDANSETRON 4 MG/2 ML VIAL IV PRN (09:23)
[2022-07-16] MEDS ORDERED: morphine 2 MG/ML VIAL IV PRN (09:23)
[2022-07-16] MEDS ORDERED: PROMETHAZINE 25 MG/ML VIAL IV PRN (09:23)
--- NOTE | 2022-07-16 10:13 | Brief Operative Note ---
Brief Operative Note Date of procedure: 07/16/22 Pre-op diagnosis: acute biliary pancreatitis;acute cholecystitis;cholelithiasis Post-op diagnosis: other (acute biliary pancreatitis;acute pancreatitis;cholelithiasis) Procedure: laparoscopic cholecystectomy Grafts/Implants: No (maddy [id number]) Anesthesia: GETA Findings: acute severe inflammation of gallbladder large gallstones Complications: none Surgeon: Mare Calvert Estimated blood loss (cc): 50 Specimens Removed/Pathology: other (gallbladder) Condition: stable Disposition: PACU
[2022-07-16] MEDS: fentaNYL 100 MCG/2 ML VIAL IV PRN ×4 (10:31→10:52)
[2022-07-16] MEDS: IPRATROPIUM/ALBUTEROL 3 ML AMPUL.NEB NEB SCH ×2 (12:25→18:52)
[2022-07-16] MEDS: POTASSIUM CHLORIDE 20 MEQ TABLET PO SCH (17:30)
[2022-07-17] MEDS: PIPERACILLIN SODIUM/TAZOBACTAM 3.375 GM in DEXTROSE 5% IN WATER 50 ML IV SCH ×3 (00:20→11:27)
[2022-07-17] MEDS: IPRATROPIUM/ALBUTEROL 3 ML AMPUL.NEB NEB SCH ×3 (01:47→16:45)
[2022-07-17 06:44] LABS: Basophils # (Auto) 0.01 K/mcL (0.00-0.30); Basophils % (Auto) 0.1 % (0.0-2.0); Eosinophils # (Auto) 0 K/mcL (0.00-0.70); Eosinophils % (Auto) 0 % (0.0-7.0); Hematocrit 42.5 % (40.1-51.0); Hemoglobin 13.2 g/dL (13.7-17.5); Lymphocytes # (Auto) 0.37 K/mcL (1.50-4.80); Lymphocytes % (Auto) 3.8 % (15.5-49.0); Mean Cell Volume 95.3 fL (80.0-100.0); Mean Corpuscular HGB Conc 31.1 g/dL (31.0-36.0); Mean Platelet Volume 10.4 fL (8.8-12.5); Monocytes # (Auto) 0.52 K/mcL (0.10-0.90); Monocytes % (Auto) 5.4 % (1.0-12.0); Neutrophils % (Auto) 90.1 % (38.0-78.0); Platelet Count 246 K/mcL (140-440); RBC 4.46 M/mcL (4.63-6.08); Red Cell Distribution Width 14.6 % (11.5-14.5); WBC 9.6 K/mcL (4.5-11.0)
[2022-07-17] MEDS: PANTOPRAZOLE 40 MG VIAL IV SCH (08:13)
[2022-07-17] MEDS: POTASSIUM CHLORIDE 20 MEQ TABLET PO SCH (08:14)
[2022-07-17 08:55] LABS: ALT/SGPT 71 U/L (<40); AST/SGOT 41 U/L (<40); Albumin 3.1 gm/dL (3.2-5.2); Albumin/Globulin Ratio 0.8 (1.0-2.3); Alkaline Phosphatase 118 U/L (39-117); Bilirubin,Direct 0.9 mg/dL (<0.3); Bilirubin,Total 1.4 mg/dL (0.1-1.0); Blood Urea Nitrogen 15 mg/dL (8-23); Carbon Dioxide 20 mmol/L (22-30); Chloride 104 mmol/L (96-108); Globulin 3.7 gm/dL (2.2-3.7); Glomerular Filtration Rate 81; Glucose 139 mg/dL (70-105); Lactate Dehydrogenase 185 U/L (135-225); Phosphorous 3.3 mg/dL (2.5-4.5); Triglycerides 101 mg/dL (<150); Uric Acid 4.5 mg/dL (2.5-8.0)
[2022-07-17] MEDS ORDERED: TORSEMIDE 20 MG TABLET PO SCH (09:00)
--- NOTE | 2022-07-17 14:59 | Discharge Summary ---
Discharge Provider Provider IMPORTANT FOLLOW-UP INFORMATION FOR PCP: Patient information: Note initiated : 07/17/22 at 2:59 pm Service Date, if different from initiated Date: [] Patient: Dylan Diaz 77 y/o M admitted on 07/14/22 for epigastric pain. Chief Complaint: [] Date of admission: 07/14/22 13:13 Discharge date: 07/17/22 Primary care physician: Phillip Gaines DO Admitting clinician: Mare Calvert Attending physician on admission: Mare Calvert Consults: 07/14/22 Consult to Physician [CONS] Stat Comment: cholecystitis Consulting Provider: Mare Calvert Reason For Exam: Physician to Consult Attending physician on discharge: Mare Calvert Discharging clinician: Mare Calvert COURSE Hospital Course Hospital course: 77-year-old male who presented with acute biliary pancreatitis with lipase over 3000 and elevated LFTs. MRCP did not reveal any common bile duct stone or dilation. Patient was monitored until lipase returned to normal. He underwent cholecystectomy on 16 July 2022. He has done well. He is afebrile. White blood count is 9.6. Bilirubin is down to 1.4. AST, ALT, alkaline phosphatase are trending towards normal. Patient has no problems except for urinary frequency. He is started on Flomax and is discharged home with plans for follow-up in 3 weeks. Liver panel and lipase will be checked at that time. Discharge diagnosis: Acute biliary pancreatitis Secondary discharge diagnosis: Acute cholecystitis History of atrial fibrillation Essential hypertension Gastroesophageal reflux disease Chronic obstructive lung disease History of congestive heart failure Reason for admission: Acute biliary pancreatitis Procedures: Laparoscopic cholecystectomy Pertinent studies/significant findings: MRCP Complications: None Time Spent with Patient Time attestation: Total time spent providing and/or coordinating discharge services: Time spent: Less than 30 minutes Physical Examination Vital Signs Vital signs: Temp Pulse Resp BP Pulse Ox O2 Del Method O2 Flow Rate 98.1 F 66 18 111/77 97 Room Air 2 07/17/22 11:38 07/17/22 11:38 07/17/22 11:38 07/17/22 11:38 07/17/22 11:38 07/17/22 12:02 07/16/22 12:20 General physical appearance General physical exam: well developed, well nourished, no distress and moderate pain Eyes Eye exam: PERRL and normal ocular movement ENT ENT exam: normal mucosa Head Head exam IM: Present atraumatic, normal inspection and normocephalic Neck Neck exam: no masses, no bruits, trachea midline, no lymphadenopathy and no venous distension Cardiovascular Cardiovascular exam IM: Present normal rate and rhythm, RRR, +S1 and +S2; Absent gallop or JVD Respiratory Respiratory exam: normal expansion, normal respiratory effort and clear to auscultation Abdomen Abdomen: Present tender (Mild tenderness around port sites and drains) and bowel sounds (Normal bowel sounds) Hernia: Present umbilical (Umbilical hernia) Integumentary Integumentary: Present no rash, no growths and no abnormal pigmentation Neurologic Neurologic: Present normal coordination and normal sensation Musculoskeletal Musculoskeletal: Present normal gait and normal posture Psychiatric Psychiatric: Present oriented to time, oriented to person, oriented to place, speech is normal and memory intact Discharge Plan Patient/Caregiver Discharge Instructions Activity: increase activity as tolerated Diet: Regular Diet and Low Fat Instructions: Laparoscopic Cholecystectomy (GEN) Prescriptions: New tamsulosin [Flomax] 0.4 mg capsule 0.4 mg PO QDAY Qty: 30 0RF No Action potassium chloride [Klor-Con M10] 10 mEq tablet,ER particles/crystals 20 meq PO QDAY Qty: 180 3RF cyanocobalamin (vitamin B-12) [Vitamin B-12] 1,000 mcg tablet 1,000 mcg PO QDAY Qty: 1 0RF zinc 50 mg tablet 50 mg PO QDAY Patient Comments: "Occasionally" vitamin B complex tablet 1 tab PO QDAY multivitamin with iron-mineral tablet tablet 1 tab PO QDAY torsemide 100 mg tablet 50 mg PO QAM coQ10 (ubiquinol) 100 mg capsule 100 mg PO QDAY pyridoxine (vitamin B6) 50 mg capsule 50 mg PO QDAY ascorbic acid (vitamin C) 500 mg tablet 500 mg PO QDAY Patient Comments: Patient states occasionally cholecalciferol (vitamin D3) 5,000 unit capsule 5,000 unit PO QDAY Patient Comments: Occasionally Prescription drug monitoring program results: PDMP not reviewed Follow Up Plan Follow up with: Phillip Gaines DO [Primary Care Provider] - (Follow up as needed) Mare Calvert MD [Physician] - 08/07/22 8:30 am (This apppointment is with Dr. Alvarez) Patient Disposition: Home, Self-Care Prognosis: Good Rehab Potential: Good I certify that the patient requires SNF services: No Overall status at discharge: patient is progressing back to baseline Discharge Orders: Discharge Order (Routine); Ordered 07/17/22 Ordered By: Mare Calvert Pending Pending Pending: Resuscitation Status Full Code Diet Regular Diet Start SunJul 17 0800 Albuterol/Ipratropium (Ipratropium/Albuterol 3 Ml Ampul.Neb) 3 ml NEB Q6HRT [facility] Last Admin: 07/17/22 08:15 Dose: Not Given Documented By: Admin: 07/17/22 01:47 Dose: Not Given Documented By: Admin: 07/16/22 18:52 Dose: Not Given Documented By: Admin: 07/16/22 12:25 Dose: 3 ml Documented By: TRENTON Hydromorphone HCl (Hydromorphone 0.5 Mg/0.5 Ml Syringe) 0.5 mg IV Q1HP PRN; Protocol PRN Reason: Per Pain Protocol Last Admin: 07/15/22 16:51 Dose: 0.5 mg Documented By: Admin: 07/14/22 21:41 Dose: 0.5 mg Documented By: [email or web address] Piperacillin Sod/Tazobactam (Sod 3.375 gm/ Dextrose) 50 mls @ 100 mls/hr IV Q6H [facility]; Protocol Last Infusion: 07/17/22 12:14 Dose: 0 mls/hr Documented By: Admin: 07/17/22 11:27 Dose: 100 mls/hr Documented By: Infusion: 07/17/22 05:59 Dose: 0 mls/hr Documented By: Admin: 07/17/22 05:29 Dose: 100 mls/hr Documented By: Infusion: 07/17/22 00:50 Dose: 0 mls/hr Documented By: Admin: 07/17/22 00:20 Dose: 100 mls/hr Documented By: Infusion: 07/16/22 18:00 Dose: 0 mls/hr Documented By: Admin: 07/16/22 17:29 Dose: 100 mls/hr Documented By: Infusion: 07/16/22 12:14 Dose: 0 mls/hr Documented By: Admin: 07/16/22 11:35 Dose: 100 mls/hr Documented By: Infusion: 07/16/22 06:15 Dose: 0 mls/hr Documented By: Admin: 07/16/22 05:29 Dose: 100 mls/hr Documented By: Infusion: 07/16/22 00:25 Dose: 0 mls/hr Documented By: Admin: 07/15/22 23:51 Dose: 100 mls/hr Documented By: Infusion: 07/15/22 18:38 Dose: 0 mls/hr Documented By: Admin: 07/15/22 17:38 Dose: 100 mls/hr Documented By: Infusion: 07/15/22 13:52 Dose: 0 mls/hr Documented By: Admin: 07/15/22 13:17 Dose: 100 mls/hr Documented By: Infusion: 07/15/22 09:52 Dose: 0 mls/hr Documented By: Admin: 07/15/22 09:15 Dose: 100 mls/hr Documented By: Infusion: 07/15/22 01:47 Dose: 0 mls/hr Documented By: Admin: 07/15/22 00:34 Dose: 100 mls/hr Documented By: Infusion: 07/14/22 22:58 Dose: 0 mls/hr Documented By: Admin: 07/14/22 18:05 Dose: 100 mls/hr Documented By: Infusion: 07/14/22 15:30 Dose: 0 mls/hr Documented By: [email or web address] Admin: 07/14/22 14:59 Dose: 100 mls/hr Documented By: NABCésar Morphine Sulfate (Morphine 2 Mg/Ml Vial) 2 mg IV Q2HP PRN; Protocol PRN Reason: Per Pain Protocol Last Admin: 07/14/22 09:31 Dose: 2 mg Documented By: Admin: 07/14/22 07:43 Dose: 2 mg Documented By: GOOD Pantoprazole Sodium (Pantoprazole 40 Mg Vial) 40 mg IV BIDAC [facility] Last Admin: 07/17/22 08:13 Dose: 40 mg Documented By: Admin: 07/16/22 17:29 Dose: 40 mg Documented By: Admin: 07/16/22 08:13 Dose: 40 mg Documented By: Admin: 07/15/22 17:39 Dose: 40 mg Documented By: Admin: 07/15/22 09:16 Dose: 40 mg Documented By: Admin: 07/14/22 17:26 Dose: 40 mg Documented By: [email or web address] Potassium Chloride (Potassium Chloride 20 Meq Tablet) 40 meq PO BIDCC [facility] Last Admin: 07/17/22 08:14 Dose: 40 meq Documented By: Admin: 07/16/22 17:30 Dose: 40 meq Documented By: FRANCK Torsemide (Torsemide 20 Mg Tablet) 50 mg PO DAILY [facility] Last Admin: 07/17/22 08:15 Dose: 50 mg Documented By: FRANCK Shift Summary 07/17/22 05:24 Shift Summary by Africa Vieira Primary Diagnosis: Biliary pancreatitis; cholecystitis; laparoscopic cholecystectomy Registration Status: Date of Surgery (if applicable): 07/16- Laparoscopic Cholecystectomy Pertinent Medical Dx/Issue(s): A-fib; HTN; COPD; GERD; osteopenia Diet: FL now, changes to regular at 0800 Med management (antibiotics, diuretics, BP): IV Zosyn Skin/Wound Care: 4 lap sites with CASSIE drain; dressing to abdomen is C/D/I Vital Signs: VSS on RA Pain management (acute vs. chronic): Denies having pain this shift Lab/Rad (abnormal, trends): AM labs drawn, results pending; 07/16- Hgb: 12.1; Hct: 38.0; Ca: 8.3; Phos: 2.0 Neuro/Mental Status: Alert and oriented x4; pleasant and cooperative Urinary Elimination Device: Up to BR Urinary output greater than 30mL/hr? Pt refuses to use urinal; unmeasured voids x2 Date of last BM: 07/15 Lines/Tubes: RAC and LAC SL; CASSIE drain output: 130mls serosanguineous fluid Activity: Up Ad fredi; Pt ambulated up and down the halls this shift Discharge Plan (needs, disposition, etc): Possibly today Initialized on 07/17/22 05:24 - END OF NOTE
--- NOTE | 2022-07-24 08:26 | Operative Note ---
DATE OF OPERATION: 07/16/2022 DATE OF PROCEDURE: 07/16/2022 PREOPERATIVE DIAGNOSES: 1. Acute biliary pancreatitis. 2. Acute cholecystitis with cholelithiasis. POSTOPERATIVE DIAGNOSES: 1. Acute biliary pancreatitis. 2. Acute cholecystitis with cholelithiasis. PROCEDURE: Laparoscopic cholecystectomy. FINDINGS: Acute severe inflammation of the gallbladder with multiple large stones. DESCRIPTION OF PROCEDURE: Under general anesthesia, the patient's abdomen was prepped and draped in a sterile field. Timeout procedure was carried out as per protocol. Supraumbilical incision was made and Veress needle was inserted. The abdomen was insufflated with 2.5 liters of CO2. A 12 mm port was placed. A tightly distended, thickened gallbladder was encountered. It was decompressed with a Weck needle. Under videoscopic guidance, the gallbladder was positioned. Cystic duct was dissected and followed back to the gallbladder. Cystic artery had multiple branches, which entered the infundibulum and the wall of the gallbladder. Cystic duct was divided with the Endo DONALD stapler. The artery branches were followed onto the wall of the gallbladder, clipped with four clips and divided. Using blunt dissection, the gallbladder was from the hepatic bed. The gallbladder was retrieved. Irrigation was carried out. A Bert drain was placed. It was positioned in the subhepatic space, brought out through a lateral port site. The ports were removed. The fascia at the umbilicus was closed with 0 Vicryl. Skin incisions were closed with magali. Tegaderm dressings were placed. The drain was secured with 2-0 nylon. The patient tolerated the procedure well. He was awakened and transferred to the postanesthetic care unit in satisfactory condition. LCS:saundra Job ID: [id number] Doc ID: [id number] Mare Calvert M.D.
== END 2022-07-17 16:30 | disposition home or self-care (01) | DRG 418 ==
LOC: ED 04:57 → MEDSUR 13:13
PROVIDERS: ADMIT Family Medicine Adult Medicine; ATTEND Family Medicine Adult Medicine